=== PATIENT | female | born 1975 | race Caucasian/White ===

== ENCOUNTER → 2017-01-06 | Outpatient (CLI) | payer MEDICARE, MEDICAID | LOC: RAD 08:44 | PROVIDERS: ATTEND Nurse Practitioner Family | DX: M54.16 Radiculopathy, lumbar region (principal) | CPT/HCPCS: 72148 ==

== ENCOUNTER → 2017-07-08 | Outpatient (CLI) | payer MEDICARE, MEDICAID ==
--- NOTE | 2017-07-08 14:48 | WOMENS IMAGING REPORT ---
EXAM DESCRIPTION: BILAT SCREENING MAMMO W/CAD COMPLETED DATE/TIME: 07/08/2017 9:58 am REASON FOR STUDY: ROUTINE SCREENING; Z12.31 Z12.31 ENCNTR SCREEN MAMMOGRAM FOR MALIGNANT NEOPLASM O F ANTHONY COMPARISON: July 2014 TECHNIQUE: Standard craniocaudal and mediolateral oblique views of each breast recorded using digita l acquisition. LIMITATIONS: None. FINDINGS: No masses, calcifications or architectural distortion. No areas of suspicion. Read with the assistance of CAD. .[facility] - R2 Cenova Version 1.3 .[facility] - R2 Cenova Version 1.3 .[facility] - R2 Cenova Version 2.4 .[facility] - R2 Cenova Version 2.4 .[facility] - R2 Clock Repairer Version 9.2 IMPRESSION: NORMAL MAMMOGRAM. BIRADS 1. BREAST DENSITY: c. The breasts are heterogeneously dense, which may obscure small masses. BIRAD: 1 NEGATIVE RECOMMENDATION: ROUTINE SCREENING COMMENT: The patient has been notified of the results by letter per SA requirements. Additional no tification policies are in place for contacting patient with suspicious or incomplete findings. Quality ID #225: The [employer] recommends an annual screening mammogram for women aged 40 years or over. This facility utilizes a reminder system to ensure that all patients receive reminder letters, and/or direct phone calls for appointments. This includes reminders for routine scr eening mammograms, diagnostic mammograms, or other Breast Imaging Interventions when appropriate. Th is patient will be placed in the appropriate reminder system. The [place] [employer] (ACR) has developed recommendations for screening MRI of the breast s in certain patient populations, to be used in conjunction with mammography. Breast MRI surveillanc e may be appropriate for women with more than 20% lifetime risk of developing breast cancer as deter mined by genetic testing, significant family history of the disease, or history of mantle radiation f or Hodgkins Disease. ACR Practice Guidelines 2008. TECHNICAL DOCUMENTATION: FINDING NUMBER: (1) ASSESSMENT: (1) JOB ID: [id number] [employer]- All Rights Reserved
== END ==
LOC: WI 10:06
PROVIDERS: ATTEND Family Medicine
DX: Z12.31 Encounter for screening mammogram for malignant neoplasm of breast (principal)
CPT/HCPCS: 77067; G0202

== ENCOUNTER → 2018-01-14 | Outpatient (CLI) | payer MEDICARE, MEDICAID ==
--- NOTE | 2018-01-14 12:52 | WOMENS IMAGING REPORT ---
EXAM DESCRIPTION: BONE DENSITY HIP/SPINE COMPLETED DATE/TIME: 01/14/2018 12:38 pm REASON FOR STUDY: DISORDER OF BONE; M89.9 M89.9 DISORDER OF BONE, UNSPECIFIED COMPARISON: None. TECHNIQUE: Dual-Energy X-ray Absorptiometry (DEXA) of the AP Spine and Hip. LIMITATIONS: None. FINDINGS: LUMBAR SPINE: The bone mineral density (BMD) measured from L1-L4 in the AP projection correlates with a T-score of -0.1, which is normal as defined by the World Health Organization. HIP: The bone mineral density (BMD) measured in the left femoral neck at the hip correlates with a T-score of -1.2, which is osteopenic as defined by the World Health Organization. IMPRESSION: 1. LUMBAR SPINE: Normal 2. HIP: Osteopenic COMMENT: The World Health Organization defines low BMD as follows: T-score: Normal: Greater than -1.0 Osteopenia: Between -1.0 and -2.5 Osteoporosis: Less than -2.5 without fractures Established osteoporosis: Less than -2.5 with fractures In general, you may wish to consider: Diagnosis Treatment Follow-up DEXA Normal BMD Prevention 2-3 years Osteopenia Prevention/Therapy 1-2 years Osteoporosis Therapy Yearly TECHNICAL DOCUMENTATION: JOB ID: [id number] [employer]- All Rights Reserved Reading location - IP/workstation name: [facility]-[email or web address]
== END ==
LOC: WI 12:30
PROVIDERS: ATTEND Family Medicine
DX: M89.9 Disorder of bone, unspecified (principal)
CPT/HCPCS: 77080

== ENCOUNTER → 2018-05-27 | Outpatient (CLI) | payer MEDICARE, MEDICAID ==
[2018-05-27 15:58] LABS: ABSOLUTE EOSINOPHILS # (AUTO) 0.7 10^3/uL (0.0-0.6); ABSOLUTE LYMPHOCYTES (AUTO) 1.9 10^3/uL (0.5-4.7); ABSOLUTE MONOCYTES (AUTO) 0.6 10^3/uL (0.1-1.4); ABSOLUTE NEUT (AUTO) 4.5 10^3/uL (1.7-8.2); BASOPHILS % (AUTO) 0.5 % (0-2); EOSINOPHILS % (AUTO) 8.6 % (0-6); HEMATOCRIT 35.8 % (36.0-47.0); HEMOGLOBIN 12.1 g/dL (12.0-15.5); LYMPHOCYTES % (AUTO) 24.5 % (13-45); MEAN CORPUSCULAR HEMOGLOBIN 29.9 pg (27.0-33.4); MEAN CORPUSCULAR HGB CONC 33.7 g/dL (32.0-36.0); MEAN CORPUSCULAR VOLUME 89 fl (80-97); MONOCYTES % (AUTO) 7.8 % (3-13); PLATELET COUNT 258 10^3/uL (150-450); RED BLOOD COUNT 4.03 10^6/uL (3.72-5.28); RED CELL DISTRIBUTION WIDTH 13.2 % (11.5-14.0); SEGMENTED NEUTROPHILS % (AUTO) 58.6 % (42-78); TOTAL CELLS COUNTED % (AUTO) 100 %; WHITE BLOOD COUNT 7.6 10^3/uL (4.0-10.5)
== END ==
LOC: OD 14:34
PROVIDERS: ATTEND Psychiatry & Neurology Psychiatry
DX: F31.32 Bipolar disorder, current episode depressed, moderate (principal); Z79.899 Other long term (current) drug therapy
CPT/HCPCS: 36415; 85025

== ENCOUNTER → 2018-06-15 | Outpatient (CLI) | payer MEDICARE, MEDICAID ==
[2018-06-15 12:04] LABS: ABSOLUTE EOSINOPHILS # (AUTO) 0.4 10^3/uL (0.0-0.6); ABSOLUTE LYMPHOCYTES (AUTO) 1.5 10^3/uL (0.5-4.7); ABSOLUTE MONOCYTES (AUTO) 0.4 10^3/uL (0.1-1.4); ABSOLUTE NEUT (AUTO) 2.9 10^3/uL (1.7-8.2); BASOPHILS % (AUTO) 0.4 % (0-2); HEMATOCRIT 35.8 % (36.0-47.0); LYMPHOCYTES % (AUTO) 28.9 % (13-45); MEAN CORPUSCULAR HEMOGLOBIN 29.7 pg (27.0-33.4); MEAN CORPUSCULAR HGB CONC 33.6 g/dL (32.0-36.0); MEAN CORPUSCULAR VOLUME 88 fl (80-97); MONOCYTES % (AUTO) 8.4 % (3-13); PLATELET COUNT 274 10^3/uL (150-450); RED BLOOD COUNT 4.05 10^6/uL (3.72-5.28); RED CELL DISTRIBUTION WIDTH 13.7 % (11.5-14.0); SEGMENTED NEUTROPHILS % (AUTO) 55.3 % (42-78); TOTAL CELLS COUNTED % (AUTO) 100 %; WHITE BLOOD COUNT 5.3 10^3/uL (4.0-10.5)
== END ==
LOC: OD 11:18
PROVIDERS: ATTEND Psychiatry & Neurology Psychiatry
DX: F31.32 Bipolar disorder, current episode depressed, moderate (principal); Z79.899 Other long term (current) drug therapy
CPT/HCPCS: 36415; 85025

== ENCOUNTER → 2018-07-21 | Outpatient (CLI) | payer MEDICARE, MEDICAID ==
[2018-07-21 10:16] LABS: ABSOLUTE EOSINOPHILS # (AUTO) 0.4 10^3/uL (0.0-0.6); ABSOLUTE LYMPHOCYTES (AUTO) 1.5 10^3/uL (0.5-4.7); ABSOLUTE MONOCYTES (AUTO) 0.5 10^3/uL (0.1-1.4); ABSOLUTE NEUT (AUTO) 4.1 10^3/uL (1.7-8.2); BASOPHILS % (AUTO) 0.4 % (0-2); EOSINOPHILS % (AUTO) 6.7 % (0-6); HEMATOCRIT 36.6 % (36.0-47.0); HEMOGLOBIN 12.7 g/dL (12.0-15.5); LYMPHOCYTES % (AUTO) 22.7 % (13-45); MEAN CORPUSCULAR HEMOGLOBIN 30.4 pg (27.0-33.4); MEAN CORPUSCULAR HGB CONC 34.6 g/dL (32.0-36.0); MEAN CORPUSCULAR VOLUME 88 fl (80-97); MONOCYTES % (AUTO) 7.6 % (3-13); PLATELET COUNT 279 10^3/uL (150-450); RED BLOOD COUNT 4.16 10^6/uL (3.72-5.28); RED CELL DISTRIBUTION WIDTH 13.3 % (11.5-14.0); SEGMENTED NEUTROPHILS % (AUTO) 62.6 % (42-78); TOTAL CELLS COUNTED % (AUTO) 100 %; WHITE BLOOD COUNT 6.6 10^3/uL (4.0-10.5)
== END ==
LOC: OD 09:46
PROVIDERS: ATTEND Psychiatry & Neurology Psychiatry
DX: F31.32 Bipolar disorder, current episode depressed, moderate (principal); Z79.899 Other long term (current) drug therapy
CPT/HCPCS: 36415; 85025

== ENCOUNTER → 2018-08-12 | Outpatient (CLI) | payer MEDICARE, MEDICAID ==
[2018-08-12 14:46] LABS: ABSOLUTE EOSINOPHILS # (AUTO) 0.6 10^3/uL (0.0-0.6); ABSOLUTE LYMPHOCYTES (AUTO) 1.6 10^3/uL (0.5-4.7); ABSOLUTE MONOCYTES (AUTO) 0.4 10^3/uL (0.1-1.4); ABSOLUTE NEUT (AUTO) 2.9 10^3/uL (1.7-8.2); BASOPHILS % (AUTO) 0.8 % (0-2); EOSINOPHILS % (AUTO) 11.2 % (0-6); HEMATOCRIT 35.7 % (36.0-47.0); HEMOGLOBIN 12.2 g/dL (12.0-15.5); MEAN CORPUSCULAR HEMOGLOBIN 30.3 pg (27.0-33.4); MEAN CORPUSCULAR HGB CONC 34.2 g/dL (32.0-36.0); MEAN CORPUSCULAR VOLUME 89 fl (80-97); MONOCYTES % (AUTO) 7.8 % (3-13); PLATELET COUNT 275 10^3/uL (150-450); RED BLOOD COUNT 4.03 10^6/uL (3.72-5.28); RED CELL DISTRIBUTION WIDTH 13.4 % (11.5-14.0); SEGMENTED NEUTROPHILS % (AUTO) 52.2 % (42-78); TOTAL CELLS COUNTED % (AUTO) 100 %; WHITE BLOOD COUNT 5.6 10^3/uL (4.0-10.5)
== END ==
LOC: OD 14:08
PROVIDERS: ATTEND Psychiatry & Neurology Psychiatry
DX: F31.32 Bipolar disorder, current episode depressed, moderate (principal)
CPT/HCPCS: 36415; 85025

== ENCOUNTER → 2018-09-18 | Outpatient (CLI) | payer MEDICARE, MEDICAID ==
[2018-09-18 12:11] LABS: ABSOLUTE EOSINOPHILS # (AUTO) 0.4 10^3/uL (0.0-0.6); ABSOLUTE LYMPHOCYTES (AUTO) 1.9 10^3/uL (0.5-4.7); ABSOLUTE MONOCYTES (AUTO) 0.6 10^3/uL (0.1-1.4); ABSOLUTE NEUT (AUTO) 4.3 10^3/uL (1.7-8.2); BASOPHILS % (AUTO) 0.5 % (0-2); EOSINOPHILS % (AUTO) 5.8 % (0-6); HEMATOCRIT 36.1 % (36.0-47.0); HEMOGLOBIN 12.5 g/dL (12.0-15.5); LYMPHOCYTES % (AUTO) 26.6 % (13-45); MEAN CORPUSCULAR HEMOGLOBIN 30.1 pg (27.0-33.4); MEAN CORPUSCULAR HGB CONC 34.6 g/dL (32.0-36.0); MEAN CORPUSCULAR VOLUME 87 fl (80-97); MONOCYTES % (AUTO) 7.9 % (3-13); PLATELET COUNT 297 10^3/uL (150-450); RED BLOOD COUNT 4.15 10^6/uL (3.72-5.28); RED CELL DISTRIBUTION WIDTH 12.8 % (11.5-14.0); SEGMENTED NEUTROPHILS % (AUTO) 59.2 % (42-78); TOTAL CELLS COUNTED % (AUTO) 100 %; WHITE BLOOD COUNT 7.2 10^3/uL (4.0-10.5)
== END ==
LOC: OD 10:40
PROVIDERS: ATTEND Psychiatry & Neurology Psychiatry
DX: F31.32 Bipolar disorder, current episode depressed, moderate (principal); Z79.899 Other long term (current) drug therapy
CPT/HCPCS: 36415; 85025

== ENCOUNTER → 2018-10-12 | Outpatient (CLI) | payer MEDICARE, MEDICAID ==
[2018-10-12 17:37] LABS: ABSOLUTE EOSINOPHILS # (AUTO) 0.5 10^3/uL (0.0-0.6); ABSOLUTE LYMPHOCYTES (AUTO) 1.9 10^3/uL (0.5-4.7); ABSOLUTE MONOCYTES (AUTO) 0.7 10^3/uL (0.1-1.4); ABSOLUTE NEUT (AUTO) 6.1 10^3/uL (1.7-8.2); BASOPHILS % (AUTO) 0.5 % (0-2); EOSINOPHILS % (AUTO) 5.2 % (0-6); HEMATOCRIT 36.1 % (36.0-47.0); HEMOGLOBIN 12.5 g/dL (12.0-15.5); LYMPHOCYTES % (AUTO) 20.6 % (13-45); MEAN CORPUSCULAR HEMOGLOBIN 30.2 pg (27.0-33.4); MEAN CORPUSCULAR HGB CONC 34.6 g/dL (32.0-36.0); MEAN CORPUSCULAR VOLUME 87 fl (80-97); MONOCYTES % (AUTO) 7.8 % (3-13); PLATELET COUNT 282 10^3/uL (150-450); RED BLOOD COUNT 4.14 10^6/uL (3.72-5.28); RED CELL DISTRIBUTION WIDTH 13.6 % (11.5-14.0); SEGMENTED NEUTROPHILS % (AUTO) 65.9 % (42-78); TOTAL CELLS COUNTED % (AUTO) 100 %; WHITE BLOOD COUNT 9.2 10^3/uL (4.0-10.5)
== END ==
LOC: OD 16:10
PROVIDERS: ATTEND Psychiatry & Neurology Psychiatry
DX: F31.32 Bipolar disorder, current episode depressed, moderate (principal); Z79.899 Other long term (current) drug therapy
CPT/HCPCS: 36415; 85025

== ENCOUNTER → 2018-11-03 | Outpatient (CLI) | payer MEDICARE, MEDICAID ==
--- NOTE | 2018-11-03 13:47 | RADIOLOGY REPORT (SQ) ---
EXAM DESCRIPTION: KNEE BILATERAL 1-2 VIEWS COMPLETED DATE/TIME: 11/03/2018 1:35 pm REASON FOR STUDY: ACUTE PAIN OF BOTH KNEES F31.32 BIPOLAR DISORDER, CURRENT EPISODE DEPRESSED, MODE RATE M25.561 PAIN IN RIGHT KNEE COMPARISON: None. NUMBER OF VIEWS: Two views. TECHNIQUE: AP and lateral standing bilateral knees. LIMITATIONS: None. FINDINGS: MINERALIZATION: Normal. RIGHT KNEE BONES: No acute fracture. No worrisome bone lesions. MEDIAL COMPARTMENT: No significant osteophytes. No joint space narrowing. No chondrocalcinosis. LATERAL COMPARTMENT: No significant osteophytes. No joint space narrowing. No chondrocalcinosis. LEFT KNEE BONES: No acute fracture. No worrisome bone lesions. MEDIAL COMPARTMENT: No significant osteophytes. No joint space narrowing. No chondrocalcinosis. LATERAL COMPARTMENT: No significant osteophytes. No joint space narrowing. No chondrocalcinosis. IMPRESSION: NEGATIVE STUDY OF THE STANDING LEFT AND RIGHT KNEES. NO SIGNIFICANT JOINT SPACE NARROWIN G OR OTHER SIGNS OF ARTHRITIS. TECHNICAL DOCUMENTATION: JOB ID: [id number] [employer]- All Rights Reserved Reading location - IP/workstation name: [email or web address]
[2018-11-03 14:35] LABS: ABSOLUTE EOSINOPHILS # (AUTO) 0.5 10^3/uL (0.0-0.6); ABSOLUTE LYMPHOCYTES (AUTO) 1.5 10^3/uL (0.5-4.7); ABSOLUTE MONOCYTES (AUTO) 0.6 10^3/uL (0.1-1.4); ABSOLUTE NEUT (AUTO) 4.4 10^3/uL (1.7-8.2); BASOPHILS % (AUTO) 0.4 % (0-2); EOSINOPHILS % (AUTO) 6.9 % (0-6); HEMATOCRIT 35.4 % (36.0-47.0); HEMOGLOBIN 12.5 g/dL (12.0-15.5); LYMPHOCYTES % (AUTO) 21.6 % (13-45); MEAN CORPUSCULAR HEMOGLOBIN 30.9 pg (27.0-33.4); MEAN CORPUSCULAR HGB CONC 35.3 g/dL (32.0-36.0); MEAN CORPUSCULAR VOLUME 88 fl (80-97); MONOCYTES % (AUTO) 8.6 % (3-13); PLATELET COUNT 280 10^3/uL (150-450); RED BLOOD COUNT 4.04 10^6/uL (3.72-5.28); RED CELL DISTRIBUTION WIDTH 13.3 % (11.5-14.0); SEGMENTED NEUTROPHILS % (AUTO) 62.5 % (42-78); TOTAL CELLS COUNTED % (AUTO) 100 %
== END ==
LOC: OD 13:05
PROVIDERS: ATTEND Family Medicine
DX: M25.561 Pain in right knee (principal); M25.562 Pain in left knee; F31.32 Bipolar disorder, current episode depressed, moderate; Z79.899 Other long term (current) drug therapy
CPT/HCPCS: 36415; 85025

== ENCOUNTER → 2018-11-03 | Outpatient (CLI) | payer MEDICARE, MEDICAID ==
--- NOTE | 2018-11-03 17:05 | WOMENS IMAGING REPORT ---
EXAM DESCRIPTION: BILAT SCREENING MAMMO W/CAD COMPLETED DATE/TIME: 11/03/2018 2:02 pm REASON FOR STUDY: Z12.31 ENCOUNTER FOR SCREENING MAMMOGRAM FOR MALIGNANT NEOPLASM OF BREAST Z12.31 ENCNTR SCREEN MAMMOGRAM FOR MALIGNANT NEOPLASM OF ANTHONY COMPARISON: 2013 TECHNIQUE: Standard craniocaudal and mediolateral oblique views of each breast recorded using digita l acquisition. LIMITATIONS: None. FINDINGS: No masses, calcifications or architectural distortion. No areas of suspicion. Read with the assistance of CAD. .[facility] - R2 Cenova Version 1.3 .[facility] - R2 Cenova Version 2.1 .[facility] - R2 Cenova Version 2.4 .[facility] - R2 Cenova Version 2.4 .[facility] - R2 [employer] Version 9.2 IMPRESSION: NORMAL MAMMOGRAM. BIRADS 1. BREAST DENSITY: c. The breasts are heterogeneously dense, which may obscure small masses. BIRAD: 1 NEGATIVE RECOMMENDATION: ROUTINE SCREENING COMMENT: The patient has been notified of the results by letter per SA requirements. Additional no tification policies are in place for contacting patient with suspicious or incomplete findings. Quality ID #225: The [employer] recommends an annual screening mammogram for women aged 40 years or over. This facility utilizes a reminder system to ensure that all patients receive reminder letters, and/or direct phone calls for appointments. This includes reminders for routine scr eening mammograms, diagnostic mammograms, or other Breast Imaging Interventions when appropriate. Th is patient will be placed in the appropriate reminder system. The [place] [employer] (ACR) has developed recommendations for screening MRI of the breast s in certain patient populations, to be used in conjunction with mammography. Breast MRI surveillanc e may be appropriate for women with more than 20% lifetime risk of developing breast cancer as deter mined by genetic testing, significant family history of the disease, or history of mantle radiation f or Hodgkins Disease. ACR Practice Guidelines 2008. TECHNICAL DOCUMENTATION: FINDING NUMBER: (1) ASSESSMENT: (1) JOB ID: [id number] [employer]- All Rights Reserved Reading location - IP/workstation name: [email or web address]
== END ==
LOC: WI 13:39
PROVIDERS: ATTEND Family Medicine
DX: Z12.31 Encounter for screening mammogram for malignant neoplasm of breast (principal)
CPT/HCPCS: 77067

== ENCOUNTER → 2018-12-08 | Outpatient (CLI) | payer MEDICARE, MEDICAID ==
[2018-12-08 11:36] LABS: ABSOLUTE EOSINOPHILS # (AUTO) 0.9 10^3/uL (0.0-0.6); ABSOLUTE LYMPHOCYTES (AUTO) 1.6 10^3/uL (0.5-4.7); ABSOLUTE MONOCYTES (AUTO) 0.7 10^3/uL (0.1-1.4); BASOPHILS % (AUTO) 0.5 % (0-2); EOSINOPHILS % (AUTO) 10.5 % (0-6); HEMOGLOBIN 12.5 g/dL (12.0-15.5); LYMPHOCYTES % (AUTO) 19.2 % (13-45); MEAN CORPUSCULAR HEMOGLOBIN 30.3 pg (27.0-33.4); MEAN CORPUSCULAR HGB CONC 34.6 g/dL (32.0-36.0); MEAN CORPUSCULAR VOLUME 88 fl (80-97); MONOCYTES % (AUTO) 8.3 % (3-13); PLATELET COUNT 278 10^3/uL (150-450); RED BLOOD COUNT 4.11 10^6/uL (3.72-5.28); RED CELL DISTRIBUTION WIDTH 13.4 % (11.5-14.0); SEGMENTED NEUTROPHILS % (AUTO) 61.5 % (42-78); TOTAL CELLS COUNTED % (AUTO) 100 %; WHITE BLOOD COUNT 8.2 10^3/uL (4.0-10.5)
== END ==
LOC: OD 11:06
PROVIDERS: ATTEND Psychiatry & Neurology Psychiatry
DX: F31.32 Bipolar disorder, current episode depressed, moderate (principal); Z79.899 Other long term (current) drug therapy
CPT/HCPCS: 36415; 85025

== ENCOUNTER → 2019-01-07 | Outpatient (CLI) | payer MEDICARE, MEDICAID ==
[2019-01-07 11:28] LABS: ABSOLUTE EOSINOPHILS # (AUTO) 0.4 10^3/uL (0.0-0.6); ABSOLUTE LYMPHOCYTES (AUTO) 1.4 10^3/uL (0.5-4.7); ABSOLUTE MONOCYTES (AUTO) 0.6 10^3/uL (0.1-1.4); BASOPHILS % (AUTO) 0.5 % (0-2); EOSINOPHILS % (AUTO) 8.1 % (0-6); HEMATOCRIT 37.1 % (36.0-47.0); HEMOGLOBIN 12.6 g/dL (12.0-15.5); LYMPHOCYTES % (AUTO) 25.8 % (13-45); MEAN CORPUSCULAR HEMOGLOBIN 29.6 pg (27.0-33.4); MEAN CORPUSCULAR HGB CONC 33.9 g/dL (32.0-36.0); MEAN CORPUSCULAR VOLUME 87 fl (80-97); MONOCYTES % (AUTO) 10.2 % (3-13); PLATELET COUNT 257 10^3/uL (150-450); RED BLOOD COUNT 4.25 10^6/uL (3.72-5.28); RED CELL DISTRIBUTION WIDTH 13.2 % (11.5-14.0); SEGMENTED NEUTROPHILS % (AUTO) 55.4 % (42-78); TOTAL CELLS COUNTED % (AUTO) 100 %; WHITE BLOOD COUNT 5.5 10^3/uL (4.0-10.5)
== END ==
LOC: OD 10:43
PROVIDERS: ATTEND Psychiatry & Neurology Psychiatry
DX: F31.32 Bipolar disorder, current episode depressed, moderate (principal); Z79.899 Other long term (current) drug therapy
CPT/HCPCS: 36415; 85025

== ENCOUNTER → 2019-02-11 | Outpatient (CLI) | payer MEDICARE, MEDICAID ==
[2019-02-11 12:34] LABS: ABSOLUTE EOSINOPHILS # (AUTO) 0.4 10^3/uL (0.0-0.6); ABSOLUTE LYMPHOCYTES (AUTO) 1.7 10^3/uL (0.5-4.7); ABSOLUTE MONOCYTES (AUTO) 0.7 10^3/uL (0.1-1.4); ABSOLUTE NEUT (AUTO) 3.8 10^3/uL (1.7-8.2); BASOPHILS % (AUTO) 0.4 % (0-2); EOSINOPHILS % (AUTO) 6.2 % (0-6); HEMATOCRIT 36.6 % (36.0-47.0); HEMOGLOBIN 12.4 g/dL (12.0-15.5); LYMPHOCYTES % (AUTO) 26.2 % (13-45); MEAN CORPUSCULAR HEMOGLOBIN 29.3 pg (27.0-33.4); MEAN CORPUSCULAR HGB CONC 33.7 g/dL (32.0-36.0); MEAN CORPUSCULAR VOLUME 87 fl (80-97); MONOCYTES % (AUTO) 10.7 % (3-13); PLATELET COUNT 308 10^3/uL (150-450); RED BLOOD COUNT 4.22 10^6/uL (3.72-5.28); RED CELL DISTRIBUTION WIDTH 13.6 % (11.5-14.0); SEGMENTED NEUTROPHILS % (AUTO) 56.5 % (42-78); TOTAL CELLS COUNTED % (AUTO) 100 %; WHITE BLOOD COUNT 6.6 10^3/uL (4.0-10.5)
== END ==
LOC: OD 11:58
PROVIDERS: ATTEND Psychiatry & Neurology Psychiatry
DX: F31.32 Bipolar disorder, current episode depressed, moderate (principal); Z79.899 Other long term (current) drug therapy
CPT/HCPCS: 36415; 85025

== ENCOUNTER → 2019-03-11 | Outpatient (CLI) | payer MEDICARE, MEDICAID ==
[2019-03-11 10:55] LABS: ABSOLUTE EOSINOPHILS # (AUTO) 0.5 10^3/uL (0.0-0.6); ABSOLUTE LYMPHOCYTES (AUTO) 1.6 10^3/uL (0.5-4.7); ABSOLUTE MONOCYTES (AUTO) 0.6 10^3/uL (0.1-1.4); ABSOLUTE NEUT (AUTO) 3.4 10^3/uL (1.7-8.2); BASOPHILS % (AUTO) 0.5 % (0-2); EOSINOPHILS % (AUTO) 8.2 % (0-6); HEMATOCRIT 36.5 % (36.0-47.0); HEMOGLOBIN 12.4 g/dL (12.0-15.5); LYMPHOCYTES % (AUTO) 25.6 % (13-45); MEAN CORPUSCULAR HEMOGLOBIN 29.5 pg (27.0-33.4); MEAN CORPUSCULAR HGB CONC 34.1 g/dL (32.0-36.0); MEAN CORPUSCULAR VOLUME 87 fl (80-97); MONOCYTES % (AUTO) 9.7 % (3-13); PLATELET COUNT 275 10^3/uL (150-450); RED BLOOD COUNT 4.21 10^6/uL (3.72-5.28); RED CELL DISTRIBUTION WIDTH 13.3 % (11.5-14.0); TOTAL CELLS COUNTED % (AUTO) 100 %; WHITE BLOOD COUNT 6.1 10^3/uL (4.0-10.5)
== END ==
LOC: OD 09:54
PROVIDERS: ATTEND Psychiatry & Neurology Psychiatry
DX: F31.32 Bipolar disorder, current episode depressed, moderate (principal); Z79.899 Other long term (current) drug therapy
CPT/HCPCS: 36415; 85025

== ENCOUNTER → 2019-04-06 | Outpatient (CLI) | payer MEDICARE, MEDICAID ==
[2019-04-06 16:01] LABS: ABSOLUTE EOSINOPHILS # (AUTO) 0.4 10^3/uL (0.0-0.6); ABSOLUTE MONOCYTES (AUTO) 0.5 10^3/uL (0.1-1.4); ABSOLUTE NEUT (AUTO) 5.3 10^3/uL (1.7-8.2); BASOPHILS % (AUTO) 0.3 % (0-2); EOSINOPHILS % (AUTO) 4.7 % (0-6); HEMATOCRIT 36.7 % (36.0-47.0); HEMOGLOBIN 12.6 g/dL (12.0-15.5); LYMPHOCYTES % (AUTO) 24.3 % (13-45); MEAN CORPUSCULAR HEMOGLOBIN 29.5 pg (27.0-33.4); MEAN CORPUSCULAR HGB CONC 34.4 g/dL (32.0-36.0); MEAN CORPUSCULAR VOLUME 86 fl (80-97); MONOCYTES % (AUTO) 6.5 % (3-13); PLATELET COUNT 313 10^3/uL (150-450); RED BLOOD COUNT 4.28 10^6/uL (3.72-5.28); RED CELL DISTRIBUTION WIDTH 13.2 % (11.5-14.0); SEGMENTED NEUTROPHILS % (AUTO) 64.2 % (42-78); TOTAL CELLS COUNTED % (AUTO) 100 %; WHITE BLOOD COUNT 8.2 10^3/uL (4.0-10.5)
== END ==
LOC: OD 15:08
PROVIDERS: ATTEND Psychiatry & Neurology Psychiatry
DX: F41.0 Panic disorder [episodic paroxysmal anxiety] (principal); F31.32 Bipolar disorder, current episode depressed, moderate; Z79.899 Other long term (current) drug therapy
CPT/HCPCS: 36415; 85025

== ENCOUNTER → 2019-05-11 | Outpatient (CLI) | payer MEDICARE, MEDICAID ==
[2019-05-11 12:34] LABS: ABSOLUTE EOSINOPHILS # (AUTO) 0.5 10^3/uL (0.0-0.6); ABSOLUTE LYMPHOCYTES (AUTO) 1.6 10^3/uL (0.5-4.7); ABSOLUTE MONOCYTES (AUTO) 0.6 10^3/uL (0.1-1.4); ABSOLUTE NEUT (AUTO) 3.6 10^3/uL (1.7-8.2); BASOPHILS % (AUTO) 0.3 % (0-2); EOSINOPHILS % (AUTO) 7.2 % (0-6); HEMATOCRIT 35.1 % (36.0-47.0); LYMPHOCYTES % (AUTO) 25.9 % (13-45); MEAN CORPUSCULAR HEMOGLOBIN 29.9 pg (27.0-33.4); MEAN CORPUSCULAR HGB CONC 34.2 g/dL (32.0-36.0); MEAN CORPUSCULAR VOLUME 87 fl (80-97); MONOCYTES % (AUTO) 9.6 % (3-13); PLATELET COUNT 284 10^3/uL (150-450); RED BLOOD COUNT 4.02 10^6/uL (3.72-5.28); RED CELL DISTRIBUTION WIDTH 13.8 % (11.5-14.0); TOTAL CELLS COUNTED % (AUTO) 100 %; WHITE BLOOD COUNT 6.3 10^3/uL (4.0-10.5)
== END ==
LOC: OD 11:07
PROVIDERS: ATTEND Physician Assistant
DX: F41.0 Panic disorder [episodic paroxysmal anxiety] (principal); Z79.899 Other long term (current) drug therapy
CPT/HCPCS: 36415; 85025

== ENCOUNTER → 2019-06-15 | Outpatient (CLI) | payer MEDICARE, MEDICAID ==
[2019-06-15 15:56] LABS: ABSOLUTE EOSINOPHILS # (AUTO) 0.5 10^3/uL (0.0-0.6); ABSOLUTE LYMPHOCYTES (AUTO) 1.9 10^3/uL (0.5-4.7); ABSOLUTE MONOCYTES (AUTO) 0.5 10^3/uL (0.1-1.4); ABSOLUTE NEUT (AUTO) 4.3 10^3/uL (1.7-8.2); BASOPHILS % (AUTO) 0.5 % (0-2); EOSINOPHILS % (AUTO) 6.4 % (0-6); HEMATOCRIT 34.9 % (36.0-47.0); MEAN CORPUSCULAR HEMOGLOBIN 29.7 pg (27.0-33.4); MEAN CORPUSCULAR HGB CONC 34.3 g/dL (32.0-36.0); MEAN CORPUSCULAR VOLUME 87 fl (80-97); MONOCYTES % (AUTO) 6.8 % (3-13); PLATELET COUNT 307 10^3/uL (150-450); RED BLOOD COUNT 4.03 10^6/uL (3.72-5.28); SEGMENTED NEUTROPHILS % (AUTO) 59.3 % (42-78); TOTAL CELLS COUNTED % (AUTO) 100 %; WHITE BLOOD COUNT 7.2 10^3/uL (4.0-10.5)
== END ==
LOC: OD 15:17
PROVIDERS: ATTEND Physician Assistant
DX: F41.0 Panic disorder [episodic paroxysmal anxiety] (principal); Z79.899 Other long term (current) drug therapy
CPT/HCPCS: 36415; 85025

== ENCOUNTER → 2019-07-26 | Outpatient (CLI) | payer MEDICARE, MEDICAID ==
[2019-07-26 15:44] LABS: ABSOLUTE EOSINOPHILS # (AUTO) 0.3 10^3/uL (0.0-0.6); ABSOLUTE LYMPHOCYTES (AUTO) 1.9 10^3/uL (0.5-4.7); ABSOLUTE MONOCYTES (AUTO) 0.4 10^3/uL (0.1-1.4); ABSOLUTE NEUT (AUTO) 4.2 10^3/uL (1.7-8.2); BASOPHILS % (AUTO) 0.4 % (0-2); HEMATOCRIT 36.5 % (36.0-47.0); HEMOGLOBIN 12.6 g/dL (12.0-15.5); MEAN CORPUSCULAR HEMOGLOBIN 29.9 pg (27.0-33.4); MEAN CORPUSCULAR HGB CONC 34.5 g/dL (32.0-36.0); MEAN CORPUSCULAR VOLUME 87 fl (80-97); MONOCYTES % (AUTO) 6.3 % (3-13); PLATELET COUNT 326 10^3/uL (150-450); RED BLOOD COUNT 4.21 10^6/uL (3.72-5.28); RED CELL DISTRIBUTION WIDTH 12.9 % (11.5-14.0); SEGMENTED NEUTROPHILS % (AUTO) 61.3 % (42-78); TOTAL CELLS COUNTED % (AUTO) 100 %; WHITE BLOOD COUNT 6.8 10^3/uL (4.0-10.5)
== END ==
LOC: OD 14:11
PROVIDERS: ATTEND Physician Assistant
DX: F41.0 Panic disorder [episodic paroxysmal anxiety] (principal); Z79.899 Other long term (current) drug therapy
CPT/HCPCS: 36415; 85025

== ENCOUNTER → 2019-08-31 | Outpatient (CLI) | payer MEDICARE, MEDICAID ==
[2019-08-31 13:13] LABS: ABSOLUTE MONOCYTES (AUTO) 0.6 10^3/uL (0.1-1.4); ABSOLUTE NEUT (AUTO) 8.6 10^3/uL (1.7-8.2); BASOPHILS % (AUTO) 0.3 % (0-2); HEMATOCRIT 35.3 % (36.0-47.0); HEMOGLOBIN 12.3 g/dL (12.0-15.5); LYMPHOCYTES % (AUTO) 9.8 % (13-45); MEAN CORPUSCULAR HEMOGLOBIN 30.3 pg (27.0-33.4); MEAN CORPUSCULAR HGB CONC 34.8 g/dL (32.0-36.0); MEAN CORPUSCULAR VOLUME 87 fl (80-97); MONOCYTES % (AUTO) 5.5 % (3-13); PLATELET COUNT 356 10^3/uL (150-450); RED BLOOD COUNT 4.05 10^6/uL (3.72-5.28); RED CELL DISTRIBUTION WIDTH 13.6 % (11.5-14.0); SEGMENTED NEUTROPHILS % (AUTO) 84.4 % (42-78); TOTAL CELLS COUNTED % (AUTO) 100 %; WHITE BLOOD COUNT 10.2 10^3/uL (4.0-10.5)
== END ==
LOC: OD 12:13
PROVIDERS: ATTEND Physician Assistant
DX: F41.0 Panic disorder [episodic paroxysmal anxiety] (principal); Z79.899 Other long term (current) drug therapy
CPT/HCPCS: 36415; 85025

== ENCOUNTER → 2019-09-28 | Outpatient (CLI) | payer MEDICARE, MEDICAID ==
[2019-09-28 12:41] LABS: ABSOLUTE EOSINOPHILS # (AUTO) 0.4 10^3/uL (0.0-0.6); ABSOLUTE LYMPHOCYTES (AUTO) 1.7 10^3/uL (0.5-4.7); ABSOLUTE MONOCYTES (AUTO) 0.5 10^3/uL (0.1-1.4); ABSOLUTE NEUT (AUTO) 3.6 10^3/uL (1.7-8.2); BASOPHILS % (AUTO) 0.4 % (0-2); EOSINOPHILS % (AUTO) 6.2 % (0-6); HEMOGLOBIN 12.1 g/dL (12.0-15.5); LYMPHOCYTES % (AUTO) 27.2 % (13-45); MEAN CORPUSCULAR HEMOGLOBIN 29.9 pg (27.0-33.4); MEAN CORPUSCULAR HGB CONC 34.5 g/dL (32.0-36.0); MEAN CORPUSCULAR VOLUME 87 fl (80-97); MONOCYTES % (AUTO) 8.3 % (3-13); PLATELET COUNT 305 10^3/uL (150-450); RED BLOOD COUNT 4.04 10^6/uL (3.72-5.28); RED CELL DISTRIBUTION WIDTH 13.4 % (11.5-14.0); SEGMENTED NEUTROPHILS % (AUTO) 57.9 % (42-78); TOTAL CELLS COUNTED % (AUTO) 100 %; WHITE BLOOD COUNT 6.3 10^3/uL (4.0-10.5)
== END ==
LOC: OD 11:46
PROVIDERS: ATTEND Physician Assistant
DX: F41.0 Panic disorder [episodic paroxysmal anxiety] (principal); Z79.899 Other long term (current) drug therapy
CPT/HCPCS: 36415; 85025

== ENCOUNTER → 2019-10-26 | Outpatient (CLI) | payer MEDICARE, MEDICAID ==
[2019-10-26 12:49] LABS: ABSOLUTE BASOPHILS # (AUTO) 0.1 10^3/uL (0.0-0.2); ABSOLUTE EOSINOPHILS # (AUTO) 0.5 10^3/uL (0.0-0.6); ABSOLUTE LYMPHOCYTES (AUTO) 1.6 10^3/uL (0.5-4.7); ABSOLUTE MONOCYTES (AUTO) 0.6 10^3/uL (0.1-1.4); ABSOLUTE NEUT (AUTO) 4.1 10^3/uL (1.7-8.2); EOSINOPHILS % (AUTO) 7.2 % (0-6); HEMATOCRIT 36.8 % (36.0-47.0); HEMOGLOBIN 12.7 g/dL (12.0-15.5); LYMPHOCYTES % (AUTO) 23.7 % (13-45); MEAN CORPUSCULAR HEMOGLOBIN 29.9 pg (27.0-33.4); MEAN CORPUSCULAR HGB CONC 34.4 g/dL (32.0-36.0); MEAN CORPUSCULAR VOLUME 87 fl (80-97); MONOCYTES % (AUTO) 8.8 % (3-13); PLATELET COUNT 332 10^3/uL (150-450); RED BLOOD COUNT 4.24 10^6/uL (3.72-5.28); RED CELL DISTRIBUTION WIDTH 13.8 % (11.5-14.0); SEGMENTED NEUTROPHILS % (AUTO) 59.3 % (42-78); TOTAL CELLS COUNTED % (AUTO) 100 %; WHITE BLOOD COUNT 6.9 10^3/uL (4.0-10.5)
== END ==
LOC: OD 11:44
PROVIDERS: ATTEND Physician Assistant
DX: F41.0 Panic disorder [episodic paroxysmal anxiety] (principal); Z79.899 Other long term (current) drug therapy
CPT/HCPCS: 36415; 85025

== ENCOUNTER → 2019-11-20 | Outpatient (CLI) | payer MEDICARE, MEDICAID ==
[2019-11-20 10:38] LABS: ABSOLUTE EOSINOPHILS # (AUTO) 0.3 10^3/uL (0.0-0.6); ABSOLUTE LYMPHOCYTES (AUTO) 1.1 10^3/uL (0.5-4.7); ABSOLUTE MONOCYTES (AUTO) 0.8 10^3/uL (0.1-1.4); ABSOLUTE NEUT (AUTO) 6.6 10^3/uL (1.7-8.2); BASOPHILS % (AUTO) 0.3 % (0-2); EOSINOPHILS % (AUTO) 3.3 % (0-6); LYMPHOCYTES % (AUTO) 12.8 % (13-45); MEAN CORPUSCULAR HEMOGLOBIN 29.8 pg (27.0-33.4); MEAN CORPUSCULAR HGB CONC 34.2 g/dL (32.0-36.0); MEAN CORPUSCULAR VOLUME 87 fl (80-97); PLATELET COUNT 303 10^3/uL (150-450); RED BLOOD COUNT 4.35 10^6/uL (3.72-5.28); RED CELL DISTRIBUTION WIDTH 13.5 % (11.5-14.0); SEGMENTED NEUTROPHILS % (AUTO) 74.6 % (42-78); TOTAL CELLS COUNTED % (AUTO) 100 %; WHITE BLOOD COUNT 8.9 10^3/uL (4.0-10.5)
== END ==
LOC: OD 10:01
PROVIDERS: ATTEND Physician Assistant
DX: F41.0 Panic disorder [episodic paroxysmal anxiety] (principal); Z79.899 Other long term (current) drug therapy
CPT/HCPCS: 36415; 85025

== ENCOUNTER → 2019-12-02 | Outpatient (CLI) | payer MEDICARE, MEDICAID ==
[2019-12-02 11:13] LABS: ABSOLUTE EOSINOPHILS # (AUTO) 0.5 10^3/uL (0.0-0.6); ABSOLUTE LYMPHOCYTES (AUTO) 1.9 10^3/uL (0.5-4.7); ABSOLUTE MONOCYTES (AUTO) 0.6 10^3/uL (0.1-1.4); ABSOLUTE NEUT (AUTO) 4.9 10^3/uL (1.7-8.2); BASOPHILS % (AUTO) 0.5 % (0-2); EOSINOPHILS % (AUTO) 6.9 % (0-6); HEMATOCRIT 35.4 % (36.0-47.0); HEMOGLOBIN 12.5 g/dL (12.0-15.5); LYMPHOCYTES % (AUTO) 23.5 % (13-45); MEAN CORPUSCULAR HEMOGLOBIN 30.5 pg (27.0-33.4); MEAN CORPUSCULAR HGB CONC 35.3 g/dL (32.0-36.0); MEAN CORPUSCULAR VOLUME 87 fl (80-97); MONOCYTES % (AUTO) 7.7 % (3-13); PLATELET COUNT 373 10^3/uL (150-450); RED BLOOD COUNT 4.09 10^6/uL (3.72-5.28); RED CELL DISTRIBUTION WIDTH 13.3 % (11.5-14.0); SEGMENTED NEUTROPHILS % (AUTO) 61.4 % (42-78); TOTAL CELLS COUNTED % (AUTO) 100 %; WHITE BLOOD COUNT 7.9 10^3/uL (4.0-10.5)
== END ==
LOC: OD 10:37
PROVIDERS: ATTEND Physician Assistant
DX: F41.0 Panic disorder [episodic paroxysmal anxiety] (principal); Z79.899 Other long term (current) drug therapy
CPT/HCPCS: 36415; 85025

== ENCOUNTER → 2019-12-24 | Outpatient (CLI) | payer MEDICARE, MEDICAID ==
[2019-12-24 12:03] LABS: ABSOLUTE EOSINOPHILS # (AUTO) 0.5 10^3/uL (0.0-0.6); ABSOLUTE LYMPHOCYTES (AUTO) 1.7 10^3/uL (0.5-4.7); ABSOLUTE MONOCYTES (AUTO) 0.4 10^3/uL (0.1-1.4); ABSOLUTE NEUT (AUTO) 3.8 10^3/uL (1.7-8.2); BASOPHILS % (AUTO) 0.4 % (0-2); EOSINOPHILS % (AUTO) 7.4 % (0-6); HEMATOCRIT 36.1 % (36.0-47.0); HEMOGLOBIN 12.9 g/dL (12.0-15.5); LYMPHOCYTES % (AUTO) 27.1 % (13-45); MEAN CORPUSCULAR HEMOGLOBIN 30.8 pg (27.0-33.4); MEAN CORPUSCULAR HGB CONC 35.7 g/dL (32.0-36.0); MEAN CORPUSCULAR VOLUME 86 fl (80-97); MONOCYTES % (AUTO) 5.9 % (3-13); PLATELET COUNT 324 10^3/uL (150-450); RED BLOOD COUNT 4.18 10^6/uL (3.72-5.28); RED CELL DISTRIBUTION WIDTH 13.6 % (11.5-14.0); SEGMENTED NEUTROPHILS % (AUTO) 59.2 % (42-78); TOTAL CELLS COUNTED % (AUTO) 100 %; WHITE BLOOD COUNT 6.4 10^3/uL (4.0-10.5)
== END ==
LOC: OD 11:31
PROVIDERS: ATTEND Physician Assistant
DX: F41.0 Panic disorder [episodic paroxysmal anxiety] (principal); Z79.899 Other long term (current) drug therapy
CPT/HCPCS: 36415; 85025

== ENCOUNTER → 2020-01-20 | Outpatient (CLI) | payer MEDICARE, MEDICAID ==
[2020-01-20 11:20] LABS: ABSOLUTE EOSINOPHILS # (AUTO) 0.4 10^3/uL (0.0-0.6); ABSOLUTE LYMPHOCYTES (AUTO) 1.7 10^3/uL (0.5-4.7); ABSOLUTE MONOCYTES (AUTO) 0.5 10^3/uL (0.1-1.4); ABSOLUTE NEUT (AUTO) 3.6 10^3/uL (1.7-8.2); BASOPHILS % (AUTO) 0.5 % (0-2); EOSINOPHILS % (AUTO) 6.5 % (0-6); HEMOGLOBIN 12.2 g/dL (12.0-15.5); LYMPHOCYTES % (AUTO) 27.7 % (13-45); MEAN CORPUSCULAR HEMOGLOBIN 30.4 pg (27.0-33.4); MEAN CORPUSCULAR VOLUME 87 fl (80-97); MONOCYTES % (AUTO) 7.4 % (3-13); PLATELET COUNT 282 10^3/uL (150-450); RED BLOOD COUNT 4.03 10^6/uL (3.72-5.28); RED CELL DISTRIBUTION WIDTH 13.9 % (11.5-14.0); SEGMENTED NEUTROPHILS % (AUTO) 57.9 % (42-78); TOTAL CELLS COUNTED % (AUTO) 100 %; WHITE BLOOD COUNT 6.1 10^3/uL (4.0-10.5)
== END ==
LOC: OD 10:29
PROVIDERS: ATTEND Physician Assistant
DX: F41.0 Panic disorder [episodic paroxysmal anxiety] (principal); Z79.899 Other long term (current) drug therapy
CPT/HCPCS: 36415; 85025

== ENCOUNTER → 2020-02-18 | Outpatient (CLI) | payer MEDICARE, MEDICAID ==
[2020-02-18 14:33] LABS: ABSOLUTE EOSINOPHILS # (AUTO) 0.3 10^3/uL (0.0-0.6); ABSOLUTE LYMPHOCYTES (AUTO) 1.2 10^3/uL (0.5-4.7); ABSOLUTE MONOCYTES (AUTO) 0.4 10^3/uL (0.1-1.4); ABSOLUTE NEUT (AUTO) 3.6 10^3/uL (1.7-8.2); BASOPHILS % (AUTO) 0.5 % (0-2); EOSINOPHILS % (AUTO) 5.7 % (0-6); HEMATOCRIT 36.9 % (36.0-47.0); HEMOGLOBIN 12.7 g/dL (12.0-15.5); LYMPHOCYTES % (AUTO) 22.1 % (13-45); MEAN CORPUSCULAR HEMOGLOBIN 30.4 pg (27.0-33.4); MEAN CORPUSCULAR HGB CONC 34.3 g/dL (32.0-36.0); MEAN CORPUSCULAR VOLUME 89 fl (80-97); MONOCYTES % (AUTO) 7.7 % (3-13); PLATELET COUNT 320 10^3/uL (150-450); RED BLOOD COUNT 4.16 10^6/uL (3.72-5.28); RED CELL DISTRIBUTION WIDTH 13.7 % (11.5-14.0); TOTAL CELLS COUNTED % (AUTO) 100 %; WHITE BLOOD COUNT 5.6 10^3/uL (4.0-10.5)
== END ==
LOC: OD 10:14
PROVIDERS: ATTEND Physician Assistant
DX: F41.0 Panic disorder [episodic paroxysmal anxiety] (principal); Z79.899 Other long term (current) drug therapy
CPT/HCPCS: 36415; 85025

== ENCOUNTER → 2020-02-18 | Outpatient (CLI) | payer MEDICARE, MEDICAID ==
--- NOTE | 2020-02-18 12:13 | RADIOLOGY REPORT (SQ) ---
EXAM DESCRIPTION: KNEE LEFT 4 VIEWS IMAGES COMPLETED DATE/TIME: 02/18/2020 11:54 am REASON FOR STUDY: CHRONIC PAIN;POLYARTHRALGIA M25.50 PAIN IN UNSPECIFIED JOINT R53.83 OTHER FATIGU E R73.03 PREDIABETES COMPARISON: None. NUMBER OF VIEWS: Four views. TECHNIQUE: AP, lateral, and both oblique radiographic images acquired of the left knee. LIMITATIONS: None. FINDINGS: MINERALIZATION: Normal. BONES: No acute fracture or dislocation. No worrisome bone lesions. Small bony exostosis off the pr oximal medial tibia. Few transverse spans at the metadiaphysis, possibly growth arrest bands. JOINT: No effusion. SOFT TISSUES: No soft tissue swelling. No radio-opaque foreign body. OTHER: No other significant finding. IMPRESSION: No evidence of acute bony abnormality of the left knee. No significant degenerative change. TECHNICAL DOCUMENTATION: JOB ID: [id number] 2010 [employer]- All Rights Reserved Reading location - IP/workstation name: [email or web address]
--- NOTE | 2020-02-18 12:14 | RADIOLOGY REPORT (SQ) ---
EXAM DESCRIPTION: KNEE RIGHT 4 VIEWS IMAGES COMPLETED DATE/TIME: 02/18/2020 11:54 am REASON FOR STUDY: CHRONIC PAIN;POLYARTHRALGIA M25.50 PAIN IN UNSPECIFIED JOINT R53.83 OTHER FATIGU E R73.03 PREDIABETES COMPARISON: None. NUMBER OF VIEWS: Four views. TECHNIQUE: AP, lateral, and both oblique radiographic images acquired of the right knee. LIMITATIONS: None. FINDINGS: MINERALIZATION: Normal. BONES: No acute fracture or dislocation. No worrisome bone lesions. Few metadiaphyseal transverse l susan, possibly growth arrest bands. Tiny suprapatellar enthesophyte. JOINT: No effusion. SOFT TISSUES: No soft tissue swelling. No radio-opaque foreign body. OTHER: No other significant finding. IMPRESSION: No evidence of acute bony abnormality of the right knee. No significant degenerative change. TECHNICAL DOCUMENTATION: JOB ID: [id number] 2010 [employer]- All Rights Reserved Reading location - IP/workstation name: [email or web address]
--- NOTE | 2020-02-18 12:43 | RADIOLOGY REPORT (SQ) ---
EXAM DESCRIPTION: HAND BILATERAL 3 VIEWS IMAGES COMPLETED DATE/TIME: 02/18/2020 11:54 am REASON FOR STUDY: CHRONIC PAIN;POLYARTHRALGIA M25.50 PAIN IN UNSPECIFIED JOINT R53.83 OTHER FATIGU E R73.03 PREDIABETES COMPARISON: None. EXAM PARAMETERS: NUMBER OF VIEWS: Three views right hand. Three views left hand. TECHNIQUE: AP, lateral and oblique radiographic images acquired of bilateral hands. LIMITATIONS: None. FINDINGS: RIGHT HAND: MINERALIZATION: Normal. BONES: No acute fracture or dislocation. No worrisome bone lesions. No significant osteophytes. JOINTS: No erosions. No kitty-articular osteopenia. No chondrocalcinosis. SOFT TISSUES: No swelling. No calcifications. OTHER: No other significant finding. LEFT HAND: MINERALIZATION: Normal. BONES: No acute fracture or dislocation. No worrisome bone lesions. No significant osteophytes. Subc hondral cyst within the distal 3rd metacarpal JOINTS: No erosions. No kitty-articular osteopenia. No chondrocalcinosis. SOFT TISSUES: No swelling. No calcifications. OTHER: No other significant finding. IMPRESSION: 1. No evidence of acute bony abnormality overlie either hand. 2. No significant degenerative change or evidence of erosive or productive disease. TECHNICAL DOCUMENTATION: JOB ID: [id number] 2010 [employer]- All Rights Reserved Reading location - IP/workstation name: [email or web address]
[2020-02-18 14:42] LABS: ALBUMIN 4.3 g/dL (3.5-5.0); ALKALINE PHOSPHATASE 109 U/L (38-126); ANION GAP 8 (5-19); ASPARTATE AMINO TRANSFERASE 23 U/L (14-36); BILIRUBIN,TOTAL 0.5 mg/dL (0.2-1.3); BLOOD UREA NITROGEN 14 mg/dL (7-20); CALCIUM 9.2 mg/dL (8.4-10.2); CARBON DIOXIDE 24 mmol/L (22-30); CHLORIDE 107 mmol/L (98-107); CHOLESTEROL 292.49 mg/dL (0-200); GLUCOSE 103 mg/dL (75-110); POTASSIUM 4.1 mmol/L (3.6-5.0); TOTAL PROTEIN 7.4 g/dL (6.3-8.2); TRIGLYCERIDES 197 mg/dL (<150)
[2020-02-18 14:53] LABS: DIRECT LDL 189 mg/dL (<100)
[2020-02-18 14:57] LABS: FREE T3 3.41 pg/mL (2.77-5.27); FREE T4 (FREE THYROXINE) 1.06 ng/dL (0.78-2.19)
[2020-02-18 15:11] LABS: THYROID STIMULATING HORMONE 0.82 uIU/mL (0.47-4.68)
[2020-02-18 15:28] LABS: ERYTHROCYTE SEDIMENTATION RATE 35 mm/hr (0-20)
[2020-02-18 16:41] LABS: ABSOLUTE EOSINOPHILS # (AUTO) 0.3 10^3/uL (0.0-0.6); ABSOLUTE LYMPHOCYTES (AUTO) 1.2 10^3/uL (0.5-4.7); ABSOLUTE MONOCYTES (AUTO) 0.4 10^3/uL (0.1-1.4); ABSOLUTE NEUT (AUTO) 3.6 10^3/uL (1.7-8.2); BASOPHILS % (AUTO) 0.5 % (0-2); EOSINOPHILS % (AUTO) 5.7 % (0-6); HEMATOCRIT 36.9 % (36.0-47.0); HEMOGLOBIN 12.7 g/dL (12.0-15.5); LYMPHOCYTES % (AUTO) 22.1 % (13-45); MEAN CORPUSCULAR HEMOGLOBIN 30.4 pg (27.0-33.4); MEAN CORPUSCULAR HGB CONC 34.3 g/dL (32.0-36.0); MEAN CORPUSCULAR VOLUME 89 fl (80-97); MONOCYTES % (AUTO) 7.7 % (3-13); PLATELET COUNT 320 10^3/uL (150-450); RED BLOOD COUNT 4.16 10^6/uL (3.72-5.28); RED CELL DISTRIBUTION WIDTH 13.7 % (11.5-14.0); TOTAL CELLS COUNTED % (AUTO) 100 %; WHITE BLOOD COUNT 5.6 10^3/uL (4.0-10.5)
[2020-02-18 17:02] LABS: VLDL CHOLESTEROL 39.4 mg/dL (10-31)
== END ==
LOC: OD 09:59
PROVIDERS: ATTEND Family Medicine
DX: M25.50 Pain in unspecified joint (principal); E78.5 Hyperlipidemia, unspecified; R53.83 Other fatigue; R73.03 Prediabetes; R79.89 Other specified abnormal findings of blood chemistry; G89.29 Other chronic pain
CPT/HCPCS: 36415; 80053; 80061; 83036; 84436; 84439; 84443; 84480; 84481; 85652; 86431

== ENCOUNTER → 2020-03-02 | Outpatient (CLI) | payer MEDICARE, MEDICAID ==
--- NOTE | 2020-03-02 13:40 | WOMENS IMAGING REPORT ---
EXAM DESCRIPTION: 3D SCREENING MAMMO BILAT IMAGES COMPLETED DATE/TIME: 03/02/2020 10:47 am REASON FOR STUDY: Z12.31 ENCNTR SCREEN MAMMOGRAM FOR MALIGNANT NEOPLASM OF BREAST Z12.31 ENCNTR SCR EEN MAMMOGRAM FOR MALIGNANT NEOPLASM OF ANTHONY COMPARISON: 11/03/2018, 07/08/2017 EXAM PARAMETERS: Views: Standard craniocaudal and mediolateral oblique views of each breast recorded using digital acquisition and breast tomosynthesis. Read with the assistance of CAD. .[facility] - R2 Rn Fore[employer] Version 9.2 LIMITATIONS: None. FINDINGS: No suspicious masses, suspicious calcifications or architectural distortion. No areas of c oncern. IMPRESSION: NEGATIVE MAMMOGRAM. BIRADS 1. BREAST DENSITY: c. The breasts are heterogeneously dense, which may obscure small masses. BIRAD: ASSESSMENT: 1 NEGATIVE RECOMMENDATION: ROUTINE SCREENING COMMENT: The patient has been notified of the results by letter per MQSA requirements. Additional no tification policies are in place for contacting patient with suspicious or incomplete findings. Quality ID #225: The [employer] recommends an annual screening mammogram for women aged 40 years or over. This facility utilizes a reminder system to ensure that all patients receive reminder letters, and/or direct phone calls for appointments. This includes reminders for routine scr eening mammograms, diagnostic mammograms, or other Breast Imaging Interventions when appropriate. Th is patient will be placed in the appropriate reminder system. TECHNICAL DOCUMENTATION: FINDING NUMBER: (1) ASSESSMENT: (1) JOB ID: [id number] 2010 [employer]- All Rights Reserved Reading location - IP/workstation name: [email or web address]
== END ==
LOC: WI 10:26
PROVIDERS: ATTEND Family Medicine
DX: Z12.31 Encounter for screening mammogram for malignant neoplasm of breast (principal)
CPT/HCPCS: 77063; 77067

== ENCOUNTER → 2020-04-20 | Outpatient (CLI) | payer MEDICARE, MEDICAID ==
[2020-04-20 11:58] LABS: ABSOLUTE EOSINOPHILS # (AUTO) 0.5 10^3/uL (0.0-0.6); ABSOLUTE LYMPHOCYTES (AUTO) 1.6 10^3/uL (0.5-4.7); ABSOLUTE MONOCYTES (AUTO) 0.5 10^3/uL (0.1-1.4); ABSOLUTE NEUT (AUTO) 4.1 10^3/uL (1.7-8.2); BASOPHILS % (AUTO) 0.6 % (0-2); EOSINOPHILS % (AUTO) 7.3 % (0-6); HEMATOCRIT 36.1 % (36.0-47.0); HEMOGLOBIN 12.2 g/dL (12.0-15.5); LYMPHOCYTES % (AUTO) 23.4 % (13-45); MEAN CORPUSCULAR HEMOGLOBIN 29.2 pg (27.0-33.4); MEAN CORPUSCULAR HGB CONC 33.7 g/dL (32.0-36.0); MEAN CORPUSCULAR VOLUME 87 fl (80-97); MONOCYTES % (AUTO) 7.2 % (3-13); PLATELET COUNT 284 10^3/uL (150-450); RED BLOOD COUNT 4.16 10^6/uL (3.72-5.28); RED CELL DISTRIBUTION WIDTH 13.1 % (11.5-14.0); SEGMENTED NEUTROPHILS % (AUTO) 61.5 % (42-78); TOTAL CELLS COUNTED % (AUTO) 100 %; WHITE BLOOD COUNT 6.6 10^3/uL (4.0-10.5)
== END ==
LOC: OD 10:54
PROVIDERS: ATTEND Physician Assistant
DX: F31.32 Bipolar disorder, current episode depressed, moderate (principal); Z79.899 Other long term (current) drug therapy
CPT/HCPCS: 36415; 85025

== ENCOUNTER → 2020-05-29 | Outpatient (CLI) | payer MEDICARE, MEDICAID ==
[2020-05-29 14:51] LABS: ABSOLUTE EOSINOPHILS # (AUTO) 0.4 10^3/uL (0.0-0.6); ABSOLUTE LYMPHOCYTES (AUTO) 1.7 10^3/uL (0.5-4.7); ABSOLUTE MONOCYTES (AUTO) 0.6 10^3/uL (0.1-1.4); ABSOLUTE NEUT (AUTO) 5.4 10^3/uL (1.7-8.2); BASOPHILS % (AUTO) 0.4 % (0-2); EOSINOPHILS % (AUTO) 5.4 % (0-6); HEMATOCRIT 33.8 % (36.0-47.0); HEMOGLOBIN 11.9 g/dL (12.0-15.5); LYMPHOCYTES % (AUTO) 21.2 % (13-45); MEAN CORPUSCULAR HEMOGLOBIN 30.1 pg (27.0-33.4); MEAN CORPUSCULAR HGB CONC 35.2 g/dL (32.0-36.0); MEAN CORPUSCULAR VOLUME 85 fl (80-97); MONOCYTES % (AUTO) 7.3 % (3-13); PLATELET COUNT 294 10^3/uL (150-450); RED BLOOD COUNT 3.95 10^6/uL (3.72-5.28); RED CELL DISTRIBUTION WIDTH 14.1 % (11.5-14.0); SEGMENTED NEUTROPHILS % (AUTO) 65.7 % (42-78); TOTAL CELLS COUNTED % (AUTO) 100 %; WHITE BLOOD COUNT 8.2 10^3/uL (4.0-10.5)
== END ==
LOC: OD 14:14
PROVIDERS: ATTEND Physician Assistant
DX: Z51.81 Encounter for therapeutic drug level monitoring (principal); Z79.899 Other long term (current) drug therapy
CPT/HCPCS: 36415; 85025

== ENCOUNTER → 2020-07-07 | Outpatient (CLI) | payer MEDICARE, MEDICAID ==
[2020-07-07 13:57] LABS: ABSOLUTE EOSINOPHILS # (AUTO) 0.4 10^3/uL (0.0-0.6); ABSOLUTE MONOCYTES (AUTO) 0.6 10^3/uL (0.1-1.4); ABSOLUTE NEUT (AUTO) 5.4 10^3/uL (1.7-8.2); BASOPHILS % (AUTO) 0.4 % (0-2); HEMATOCRIT 34.6 % (36.0-47.0); HEMOGLOBIN 11.7 g/dL (12.0-15.5); LYMPHOCYTES % (AUTO) 23.6 % (13-45); MEAN CORPUSCULAR HEMOGLOBIN 29.4 pg (27.0-33.4); MEAN CORPUSCULAR HGB CONC 33.9 g/dL (32.0-36.0); MEAN CORPUSCULAR VOLUME 87 fl (80-97); MONOCYTES % (AUTO) 7.5 % (3-13); PLATELET COUNT 287 10^3/uL (150-450); RED BLOOD COUNT 3.99 10^6/uL (3.72-5.28); RED CELL DISTRIBUTION WIDTH 13.9 % (11.5-14.0); SEGMENTED NEUTROPHILS % (AUTO) 63.5 % (42-78); TOTAL CELLS COUNTED % (AUTO) 100 %; WHITE BLOOD COUNT 8.4 10^3/uL (4.0-10.5)
== END ==
LOC: OD 13:12
PROVIDERS: ATTEND Physician Assistant
DX: Z51.81 Encounter for therapeutic drug level monitoring (principal); Z79.899 Other long term (current) drug therapy
CPT/HCPCS: 36415; 85025

== ENCOUNTER 2020-09-17 18:35 | Emergency (ER) | payer MEDICARE, MEDICAID ==
--- NOTE | 2020-09-17 20:02 | ER Document Report ---
ED Medical Screen (RME) - General TRAVEL OUTSIDE OF THE [place] IN LAST 30 DAYS: No <JORGE CARRANZA - Last Filed: 09/17/20 20:01> <JOSE KNAPP IV - Last Filed: 09/18/20 03:30> - General Chief Complaint: High Blood Pressure Stated Complaint: ELEVATED BLOOD PRESSURE Time Seen by Provider: 09/17/20 19:55 Primary Care Provider: SHELLI JULIO PA-C [Primary Care Provider] - Follow up as needed Notes: Patient is a 45-year-old female presents emergency department with a chief complaint of elevated blood pressure readings and feeling, "shaky." Patient states that her blood pressure was in the 180s over 100s at home. States that she took a Xanax at 6:00 this evening to try to help, but still feels shaky. She was also started on Levaquin and prednisone for bronchitis. States that she has some chest pressure. Exam: Patient appears nervous. I have greeted and performed a rapid initial assessment of this patient. A comprehensive ED assessment and evaluation of the patient, analysis of test results and completion of medical decision making process will be conducted by an additional ED providers. (JORGE CARRANZA) - Related Data Allergies/Adverse Reactions: No Known Allergies Allergy (Unverified 11/02/12 22:06) Past Medical History - Past Medical History Cardiac Medical History: Reports: Hx Hypercholesterolemia Denies: Hx Coronary Artery Disease, Hx Heart Attack, Hx Hypertension Pulmonary Medical History: Reports: Hx Asthma - ON ALBUTEROL AND VENTOLIN, Hx Bronchitis, Hx Pneumonia Denies: Hx COPD Neurological Medical History: Reports: Hx Migraine Endocrine Medical History: Reports: Hx Hypothyroidism Musculoskeltal Medical History: Denies Hx Arthritis, Reports Hx Fibromyalgia Psychiatric Medical History: Reports: Hx Anxiety, Hx Bipolar Disorder, Hx Borderline Personality Disorder, Hx Depression, Hx Personality Disorder Past Surgical History: Reports: Hx Cholecystectomy - Immunizations Immunizations up to date: Yes Hx Diphtheria, Pertussis, Tetanus Vaccination: Yes <JORGE CARRANZA - Last Filed: 09/17/20 20:01> Physical Exam - Vital signs Vitals: Temp Pulse Resp BP Pulse Ox 98.3 F 108 H 20 166/105 H 100 09/17/20 19:08 09/17/20 19:08 09/17/20 19:08 09/17/20 19:08 09/17/20 19:08 Course - Laboratory Results Result Diagrams: 09/17/20 20:20 09/17/20 20:20 <JOSE KNAPP IV - Last Filed: 09/18/20 03:30> - Re-evaluation Re-evalutation: 09/18/20 03:23 Differential diagnosis: Anxiety, essential hypertension, ACS, renal dysfunction (JOSE KNAPP IV) - Vital Signs Vital signs: Temp Pulse Resp BP Pulse Ox 98.3 F 119 H 18 125/99 H 100 09/18/20 01:38 09/17/20 23:17 09/18/20 01:38 09/18/20 01:38 09/18/20 01:38 - EKG Interpretation by Me Additional EKG results interpreted by me: 09/18/20 03:24 EKG obtained on 09/17/2020 at 2010 hrs. was interpreted by this MD. Findings: Normal sinus rhythm, rate 88, normal axis, P waves preceding QRS complexes, VT interval appears to be within normal limits, QRS complex appears narrow, QTC is 441, there are no obvious patterns of ST segment elevation, depression or reciprocal changes seen to suggest acute myocardial ischemia or infarction. When compared with prior EKG from 08/29/2013, the gross morphology of the 2 EKGs appears to be quite similar. Impression: Normal sinus rhythm with nonspecific ST segments. (JOSE KNAPP IV) Doctor's Discharge <DILLONJORGE Gwen - Last Filed: 09/17/20 20:01> <JOSE KNAPP IV - Last Filed: 09/18/20 03:30> - Discharge Referrals: SHELLI JULIO PA-C [Primary Care Provider] - Follow up as needed
[2020-09-17 20:54] LABS: ABSOLUTE EOSINOPHILS # (AUTO) 0.1 10^3/uL (0.0-0.6); ABSOLUTE LYMPHOCYTES (AUTO) 1.5 10^3/uL (0.5-4.7); ABSOLUTE MONOCYTES (AUTO) 0.9 10^3/uL (0.1-1.4); ABSOLUTE NEUT (AUTO) 6.6 10^3/uL (1.7-8.2); BASOPHILS % (AUTO) 0.3 % (0-2); EOSINOPHILS % (AUTO) 1.4 % (0-6); HEMATOCRIT 37.4 % (36.0-47.0); HEMOGLOBIN 12.7 g/dL (12.0-15.5); LYMPHOCYTES % (AUTO) 16.8 % (13-45); MEAN CORPUSCULAR HEMOGLOBIN 29.5 pg (27.0-33.4); MEAN CORPUSCULAR HGB CONC 33.9 g/dL (32.0-36.0); MEAN CORPUSCULAR VOLUME 87 fl (80-97); MONOCYTES % (AUTO) 9.7 % (3-13); PLATELET COUNT 310 10^3/uL (150-450); RED BLOOD COUNT 4.29 10^6/uL (3.72-5.28); SEGMENTED NEUTROPHILS % (AUTO) 71.8 % (42-78); TOTAL CELLS COUNTED % (AUTO) 100 %; WHITE BLOOD COUNT 9.2 10^3/uL (4.0-10.5)
[2020-09-17 21:01] LABS: ALBUMIN 4.4 g/dL (3.5-5.0); ALKALINE PHOSPHATASE 104 U/L (38-126); ANION GAP 6 (5-19); ASPARTATE AMINO TRANSFERASE 29 U/L (14-36); BILIRUBIN,DIRECT 0.2 mg/dL (0.0-0.4); BILIRUBIN,TOTAL 0.5 mg/dL (0.2-1.3); BLOOD UREA NITROGEN 16 mg/dL (7-20); CALCIUM 9.8 mg/dL (8.4-10.2); CARBON DIOXIDE 30 mmol/L (22-30); CHLORIDE 103 mmol/L (98-107); CREATINE KINASE 52 U/L (30-135); GLUCOSE 101 mg/dL (75-110); POTASSIUM 3.6 mmol/L (3.6-5.0); TOTAL PROTEIN 7.4 g/dL (6.3-8.2)
--- NOTE | 2020-09-17 21:08 | RADIOLOGY REPORT (SQ) ---
EXAM DESCRIPTION: XR CHEST 2 VIEWS COMPLETED DATE/TME: 09/17/2020 20:43 CLINICAL HISTORY: 45 years, Female, chest tightness COMPARISON: August 28, 2013. NUMBER OF VIEWS: 2 TECHNIQUE: 2 views of the chest were obtained. LIMITATIONS: None. FINDINGS: The heart size is within normal limits. Lungs appear clear. There is no evidence of pleural effusion or pneumothorax. No acute bony abnormality is seen. IMPRESSION: No acute abnormality as above. copyright 2010 [employer]- All Rights Reserved
--- NOTE | 2020-09-17 21:18 | EKG REPORT ---
SEVERITY:- ABNORMAL ECG - SINUS RHYTHM LEFT AXIS DEVIATION NONSPECIFIC ST-T CHANGES DIFFUSE. : Confirmed by: Oracio Pelletier MD 17-Sep-2020 21:17:59
[2020-09-18] MEDS ORDERED: HYDRALAZINE HCL INJ/PF 20 MG/1 ML SDV IV ONE (03:22)
[2020-09-18] MEDS ORDERED: ALPRAZOLAM 0.5 MG TABLET PO ONE (03:22)
[2020-09-18] MEDS ORDERED: NORMAL SALINE 1000 ML 1,000 ML IV ONE (03:22)
[2020-09-18] MEDS ORDERED: BENAZEPRIL HCL 20 MG TABLET PO ONE (03:38)
--- NOTE | 2020-09-18 03:50 | ER Document Report ---
Entered by JAMES ALEGRIA SCRIBE 09/18/20 0313 Acting as scribe for:JOSE KNAPP IV, MD ED Blood Pressure Problem - General Chief Complaint: Chest Pressure Stated Complaint: ELEVATED BLOOD PRESSURE Time Seen by Provider: 09/17/20 19:55 Primary Care Provider: SHELLI JULIO PA-C [Primary Care Provider] - Follow up as needed Information source: Patient Notes: This 45-year-old female patient presents to the emergency department today with complaints of elevated blood pressures at home today. Patient reports that she is not on blood pressure medicine and she has never had an elevated blood pressure in the past until today. Patient reports that she has bad anxiety and she does appear to be quite anxious today. Patient mentions some intermittent stabbing chest pain as well as a headache. Patient mentions that she has not eaten since 5 PM last night and she thinks that her headache is due to that. TRAVEL OUTSIDE OF THE [place] IN LAST 30 DAYS: No - Related Data Allergies/Adverse Reactions: No Known Allergies Allergy (Unverified 11/02/12 22:06) Home Medications: xanax. prezosyn. lexipro. lamictal. safrice. prednisone Past Medical History - General Information source: Patient - Social History Smoking Status: Never Smoker Cigarette use (# per day): No Chew tobacco use (# tins/day): No Frequency of alcohol use: None Drug Abuse: None Family History: CAD - Past Medical History Cardiac Medical History: Reports: Hx Hypercholesterolemia Pulmonary Medical History: Reports: Hx Asthma - ON ALBUTEROL AND VENTOLIN, Hx Bronchitis, Hx Pneumonia Neurological Medical History: Reports: Hx Migraine Endocrine Medical History: Reports: Hx Hypothyroidism Musculoskeletal Medical History: Reports Hx Fibromyalgia Psychiatric Medical History: Reports: Hx Anxiety, Hx Bipolar Disorder, Hx Borderline Personality Disorder, Hx Depression, Hx Personality Disorder Past Surgical History: Reports: Hx Cholecystectomy - Immunizations Immunizations up to date: Yes Hx Diphtheria, Pertussis, Tetanus Vaccination: Yes Review of Systems - Review of Systems Constitutional: No symptoms reported EENT: No symptoms reported Cardiovascular: See HPI, Chest pain, Other - elevated BP Respiratory: No symptoms reported Gastrointestinal: No symptoms reported Genitourinary: No symptoms reported Female Genitourinary: No symptoms reported Musculoskeletal: No symptoms reported Skin: No symptoms reported Hematologic/Lymphatic: No symptoms reported Neurological/Psychological: See HPI, Anxiety, Headaches -: Yes All other systems reviewed and negative Physical Exam - Vital signs Vitals: Temp Pulse Resp BP Pulse Ox 98.3 F 108 H 20 166/105 H 100 09/17/20 19:08 09/17/20 19:08 09/17/20 19:08 09/17/20 19:08 09/17/20 19:08 - Notes Notes: Physical Exam: General: Alert, appears well. HEENT: Normocephalic. Atraumatic. PERRL. Extraocular movements intact. Oropharynx clear. Neck: Supple. Non-tender. Respiratory: No respiratory distress. Clear and equal breath sounds bilaterally. Cardiovascular: Tachycardic, regular rhythm. Abdominal: Normal Inspection. Non-tender. No distension. Normal Bowel Sounds. Back: No gross abnormalities. Extremities: Moves all four extremities. Upper extremities: Normal inspection. Normal ROM. Lower extremities: Normal inspection. No edema. Normal ROM. Neurological: Normal cognition. AAOx4. Normal speech. Psychological: Appears to be quite anxious Skin: Warm. Dry. Normal color. Course - Re-evaluation Re-evalutation: 09/18/20 04:53 Differential diagnosis: Anxiety, essential hypertension, acute coronary syndrome, electrolyte abnormality MDM: Patient has responded well to 2.5 of Xanax and 20 mg of benazepril. I think she has some essential hypertension as well as some anxiety. I do not think the praises and is helping her in terms of her blood pressure and I have recommended that she discontinue that. I am giving the patient a prescription for benazepril 20 mg p.o. nightly since she takes all her other medications at bedtime. She has been instructed to follow-up with her primary care provider within the next 2 days. Results of ED MSE discussed with patient. Patient states she is feeling better. All questions were answered prior to discharge. Emergency signs and symptoms, reasons to return to the emergency department discussed with patient. - Vital Signs Vital signs: Temp Pulse Resp BP Pulse Ox 98.3 F 119 H 12 141/96 H 100 09/18/20 01:38 09/17/20 23:17 09/18/20 04:30 09/18/20 04:30 09/18/20 04:30 - Laboratory Results Result Diagrams: 09/17/20 20:20 09/17/20 20:20 Critical Laboratory Results Reviewed: No Critical Results - Radiology Results Critical Radiology Results Reviewed: No Critical Results - EKG Interpretation by Me Additional EKG results interpreted by me: 09/18/20 04:56 EKG performed on 09/17/2020 at 2010 hrs. was interpreted by this MD. Findings: Normal sinus rhythm, heart rate 88, left axis deviation is present, TX interval appears to be within normal limits, P waves preceding QRS complexes, QRS complexes appear narrow, QTC is 441, there are no obvious patterns of ST segment elevation, depression or reciprocal changes seen to suggest acute myocardial ischemia or infarction. Impression normal sinus rhythm with left axis deviation and nonspecific ST segments. Discharge - Discharge Clinical Impression: Anxiety High blood pressure Qualifiers: Hypertension type: unspecified Qualified Code(s): I10 - Essential (primary) hypertension Condition: Stable Disposition: HOME, SELF-CARE Instructions: Angiotensin Converting Enzyme Inhibitor Medication ([facility]), High Blood Pressure ([facility]) Additional Instructions: Return to the Emergency Department without delay if any worse. HOME CARE INSTRUCTIONS & INFORMATION: Thank you for choosing us for your medical needs. We hope you're satisfied with the care you received. After you leave, you must properly care for your problem and, at the same time, observe its progress. Any condition can change. Some illnesses can change rapidly over hours or days. If your condition worsens, return to the Emergency Department or see your physician promptly. ABOUT YOUR X-RAYS AND EKG'S: If you had an EKG or X-rays taken, they have been read by the Emergency Physician. The X-rays and EKG's will also be read by a Radiologist or Direct Service Provider within 24 hours. If discrepancies are noted, you will be notified by telephone. Please be certain the ED has a correct telephone number & address where you can be reached. Also, realize that some fractures or abnormalities do not show up on initial X-rays. If your symptoms continue, see your physician. ABOUT YOUR LABORATORY TEST: If you had laboratory tests, the results have been reviewed by the Emergency Physician. Some test results (for example cultures) may not be available for several days. You will be contacted if any test result shows you need additional treatment. Please be certain the ED has a correct telephone number and address where you can be reached. ABOUT YOUR MEDICATIONS: You will receive instructions on how to take your medicine on the prescription label you receive. Additional information may be provided by the Pharmacy. If you have questions afterwards, call the ED for clarification or further instructions. Some prescribed medications may cause drowsiness. Do not perform tasks such as driving a car or operating machinery without consulting your Pharmacist. If you feel you need a refill of pain medication, your condition will need re-evaluation. Please do not call for a refill of any medication. ABOUT YOUR SIGNATURE: Signature of this document acknowledges to followin. Understanding that you received emergency treatment and that you may be released before al medical problems are known or treated. Please be certain the ED has a correct phone number & address where you can be reached. 2. Acknowledgement that you will arrange for follow-up care as recommended. 3. Authorization for the Emergency Physician to provide information to your follow-up Physician in order to maximize your care. AT ANY TIME, IF YOUR SYMPTOMS CHANGE SIGNIFICANTLY OR WORSEN OR YOU DEVELOP NEW SYMPTOMS, RETURN TO THE EMERGENCY DEPARTMENT IMMEDIATELY FOR RE-EVALUATION. OUR GOAL IS TO PROVIDE EXCELLENT MEDICAL CARE! WE HOPE THAT WE HAVE MET YOUR EXPECTATIONS DURING YOUR EMERGENCY DEPARTMENT VISIT AND THAT YOU FEEL YOU HAVE RECEIVED EXCELLENT CARE! Prescriptions: Benazepril HCl 20 mg PO QHS 30 Days #30 tablet Referrals: SHELLI JULIO PA-C [Primary Care Provider] - Follow up as needed I personally performed the services described in the documentation, reviewed and edited the documentation which was dictated to the scribe in my presence, and it accurately records my words and actions.
[2020-09-18] MEDS ORDERED: BENAZEPRIL HCL 20 MG TABLET ONE (04:18)
[2020-09-18 05:40] VITALS: BP 134/94
--- OUTSIDE RECORDS SUMMARY | 2020-09-20 09:17 | XMS REPORT ---
:1975 Author Organization [facility] Address [facility] [place] [address] [place] [id number] Care Team Providers Name Role Phone James Attending Clinician Unavailable James Attending Clinician Unavailable Allergies, Adverse Reactions, Alerts This patient has no known allergies or adverse reactions. Medications This patient has no known medications. Problems This patient has no known problems. Procedures Procedure Date / Time Performed Performing Clinician Devic e OFFICE/OUTPATIENT VISIT EST 2020-02-01 09:15:00 OFFICE/OUTPATIENT VISIT EST 2018-09-29 09:30:00 OFFICE/OUTPATIENT VISIT EST 2018-02-02 16:00:00 OFFICE/OUTPATIENT VISIT EST 2018-01-06 14:00:00 OFFICE/OUTPATIENT VISIT EST 2017-12-30 09:15:00 OFFICE/OUTPATIENT VISIT EST 2017-07-22 09:00:00 OFFICE/OUTPATIENT VISIT EST 2017-06-20 09:00:00 OFFICE/OUTPATIENT VISIT EST 2016-12-02 09:30:00 Results Test Description Test Time Test Comments Text Results Atomic Results Result Comments SARS-CoV-2 RNA Resp Ql SALENA+probe 2020-07-16 00:00:00 Test Item Value Reference Range Comments SARS-CoV-2 RNA Resp Ql SALENA+probe Not detected [facility] Case ID: (test code = 33299-3) [id number] SARS-CoV-2, SALENA\S\2020-07-14 10:54:00 Test Item Value Reference Range Comments SARS-CoV-2, SALENA (test code = 49032-3) Not Detected Not Detect ed RHEUMATOID ARTHRITIS FACTOR\S\2020-02-18 10:26:00 Test Item Value Reference Range Comments RHEUMATOID ARTHRITIS FACTOR (test code = RF) < 8.6 IU/mL <12 .0 LIPID PANEL\S\2020-02-18 10:26:00 Test Item Value Reference Range Comments Direct HDL (test code = DHDL) 41 mg/dL >40 CHOLESTEROL (test code = CHOL) 292.49 mg/dL 0-200 TRIGLYCERIDES (test code = TRIG) 197 mg/dL <150 DIRECT LDL (test code = DLDL) 189 mg/dL <100 VLDL CHOLESTEROL (test code = VLDL) 39.4 mg/dL 10-31 TOTAL T3\S\2020-02-18 10:26:00 Test Item Value Reference Range Comments TOTAL T3 (test code = TT3) 1.34 ng/mL 0.970-1.69 THYROXINE T4\S\2020-02-18 10:26:00 Test Item Value Reference Range Comments THYROXINE T4 (test code = D6QVTNV) 8.87 ug/dL 5.53-11.0 ERYTHROCYTE SEDIMENTATION RATE\S\2020-02-18 10:26:00 Test Item Value Reference Range Comments ERYTHROCYTE SEDIMENTATION RATE (test code = ESR) 35 mm/hr 0-20 HEMOGLOBIN A1C\S\2020-02-18 10:26:00 Test Item Value Reference Range Comments HEMOGLOBIN A1C (test code = A1CV) 5.0 % 4.7-6.0 CBC WITH DIFF\S2020-02-18 10:26:00 Test Item Value Reference Range Comments LYMPHOCYTES % (AUTO) (test code = LY%) 22.1 % 13-45 HEMATOCRIT (test code = HCT) 36.9 % 36.0-47.0 ABSOLUTE EOSINOPHILS # (AUTO) (test code = EO#) 0.3 10 3/uL 0.0-0.6 EOSINOPHILS % (AUTO) (test code = EO%) 5.7 % 0-6 MONOCYTES % (AUTO) (test code = MO%) 7.7 % 3-13 ABSOLUTE BASOPHILS # (AUTO) (test code = BA#) 0.0 10 3/uL 0. 0-0.2 MEAN CORPUSCULAR VOLUME (test code = MCV) 89 fl 80-97 BASOPHILS % (AUTO) (test code = BA%) 0.5 % 0-2 RED CELL DISTRIBUTION WIDTH (test code = RDW) 13.7 % 11 .5-14.0 MEAN CORPUSCULAR HEMOGLOBIN (test code = MCH) 30.4 pg 27 .0-33.4 ABSOLUTE MONOCYTES (AUTO) (test code = MO#) 0.4 10 3/uL 0.1- 1.4 WHITE BLOOD COUNT (test code = WBC) 5.6 10 3/uL 4.0-10.5 ABSOLUTE LYMPHOCYTES (AUTO) (test code = LY#) 1.2 10 3/uL 0. 5-4.7 SEGMENTED NEUTROPHILS % (AUTO) (test code = 64.0 % 42-7 8 SEG%) ABSOLUTE NEUT (AUTO) (test code = NE#) 3.6 10 3/uL 1.7-8.2 MEAN CORPUSCULAR HGB CONC (test code = MCHC) 34.3 g/dL 32. 0-36.0 PLATELET COUNT (test code = PLT) 320 10 3/uL 150-450 RED BLOOD COUNT (test code = RBC) 4.16 10 6/uL 3.72-5.28 HEMOGLOBIN (test code = HGB) 12.7 g/dL 12.0-15.5 THYROID STIMULATING HORMONE\S\2020-02-18 10:26:00 Test Item Value Reference Range Comments THYROID STIMULATING HORMONE (test code = TSHE) 0.82 uIU/mL 0 .47-4.68 COMPREHENSIVE METABOLIC PANEL\S\2020-02-18 10:26:00 Test Item Value Reference Range Comments EGFR,NON (test code = GFRN) 59 >60 POTASSIUM (test code = K) 4.1 mmol/L 3.6-5.0 CARBON DIOXIDE (test code = CO2) 24 mmol/L 22-30 ANION GAP (test code = ANION) 8 5-19 ALKALINE PHOSPHATASE (test code = ALKP) 109 U/L 38-126 EGFR, (test code = GFRAA) > 60 >60 BILIRUBIN,TOTAL (test code = TBIL) 0.5 mg/dL 0.2-1.3 ALANINE AMINOTRANSFERASE (test code = ALTV) 13 U/L <35 BILIRUBIN,DIRECT (test code = BC) 0.0 mg/dL 0.0-0.4 ASPARTATE AMINO TRANSFERASE (test code = AST) 23 U/L 14 -36 TOTAL PROTEIN (test code = TP) 7.4 g/dL 6.3-8.2 BLOOD UREA NITROGEN (test code = BUN) 14 mg/dL 7-20 ALBUMIN (test code = ALB) 4.3 g/dL 3.5-5.0 CREATININE RESULT (test code = CREA) 1.01 mg/dL 0.52-1.25 CHLORIDE (test code = CL-1) 107 mmol/L 98-107 SODIUM (test code = NA) 139.4 mmol/L 137-145 GLUCOSE (test code = GLU) 103 mg/dL 75-110 CALCIUM (test code = CA) 9.2 mg/dL 8.4-10.2 FREE T3\S\2020-02-18 10:26:00 Test Item Value Reference Range Comments FREE T3 (test code = FT3E) 3.41 pg/mL 2.77-5.27 FREE T4 (FREE THYROXINE)\S\2020-02-18 10:26:00 Test Item Value Reference Range Comments FREE T4 (FREE THYROXINE) (test code = FT4E) 1.06 ng/dL 0.78 -2.19 SARS-CoV-2 RNA Resp Ql SALENA+[id number] 00:00:00 Test Item Value Reference Range Comments SARS-CoV-2 RNA Resp Ql Not detected [facility] SAL[place]+probe (test code = ID: [id number] 96363-2) T3, [id number] 00:00:86710XAUTS PANEL, [id number] 00:00:00 Test Item Value Reference Range Comments NON HDL CHOLESTEROL (test code = 68389287) 93 mg/dL (calc) <130 CHOL/HDLC RATIO (test code = 06410940) 3.5 (calc) <5.0 TRIGLYCERIDES (test code = 49854811) 146 mg/dL <150 CHOLESTEROL, TOTAL (test code = 24113900) 130 mg/dL <200 HDL CHOLESTEROL (test code = 80978355) 37 mg/dL >50 LDL-CHOLESTEROL (test code = 66435878) 70 mg/dL (calc) CBC (H/H, RBC, INDICES, WBC, PLT)2018-09-29 00:00:00 Test Item Value Reference Range Comments WHITE BLOOD CELL COUNT (test code = 6.0 Thousand/uL 3.8-10.8 86366712) RED BLOOD CELL COUNT (test code = 66283372) 3.93 Million/uL 3.80 -5.10 MCHC (test code = 32181458) 34.1 g/dL 32.0-36.0 PLATELET COUNT (test code = 00847983) 293 Thousand/uL 140-400 MPV (test code = 37273854) 11.1 fL 7.5-12.5 HEMOGLOBIN (test code = 39409493) 11.8 g/dL 11.7-15.5 RDW (test code = 51390014) 12.3 % 11.0-15.0 HEMATOCRIT (test code = 08901848) 34.6 % 35.0-45.0 MCH (test code = 53427790) 30.0 pg 27.0-33.0 MCV (test code = 67182406) 88.0 fL 80.0-100.0 T4 (THYROXINE), [id number] 00:00:007.2T3, [id number] 00:00:002.7 HEMOGLOBIN A1c WITH [id number] 00:00:00 Test Item Value Reference Range Comments eAG (mmol/L) (test code = 74488925) 6.0 (calc) HEMOGLOBIN A1c (test code = 27614505) 5.4 % of total Hgb <5.7 eAG (mg/dL) (test code = 28201478) 108 (calc) COMPREHENSIVE METABOLIC [id number] 00:00:00 Test Item Value Reference Range Comments eGFR (test code = 85 mL/min/1.73m2 > OR = 60 69203221) eGFR NON-AFR. MONTENEGRIN (test code = 73 mL/min/1.73m2 > OR = 60 17768737) CALCIUM (test code = 83101221) 9.0 mg/dL 8.6-10.2 CREATININE (test code = 57131422) 0.94 mg/dL 0.50-1.10 AST (test code = 98196189) 15 U/L 10-35 CHLORIDE (test code = 98869924) 107 mmol/L 98-110 ALBUMIN (test code = 55641175) 3.9 g/dL 3.6-5.1 PROTEIN, TOTAL (test code = 79414814) 6.5 g/dL 6.1-8.1 BUN/CREATININE RATIO (test code = NOT APPLICABLE (calc) 6-22 07727612) ALBUMIN/GLOBULIN RATIO (test code = 1.5 (calc) 1.0-2.5 18147025) GLUCOSE (test code = 91363708) 87 mg/dL 65-99 POTASSIUM (test code = 50704059) 3.5 mmol/L 3.5-5.3 BILIRUBIN, TOTAL (test code = 0.4 mg/dL 0.2-1.2 52959796) SODIUM (test code = 16530263) 142 mmol/L 135-146 CARBON DIOXIDE (test code = 38968853) 29 mmol/L 20-32 GLOBULIN (test code = 82622522) 2.6 g/dL (calc) 1.9-3.7 ALT (test code = 77775118) 18 U/L 6-29 UREA NITROGEN (BUN) (test code = 12 mg/dL 7-25 16759810) ALKALINE PHOSPHATASE (test code = 93 U/L 33-115 63187293) T4, [id number] 00:00:[id number] 00:00:001.32VITAMIN D,25-OH,TOTAL,IA 2018-09-29 00:00:[id number] 00:00:001.05T4, [id number] 00:00:001.1 HEMOGLOBIN A1c WITH [id number] 00:00:00 Test Item Value Reference Range Comments eAG (mmol/L) (test code = 60384295) 5.5 (calc) HEMOGLOBIN A1c (test code = 11516716) 5.1 % of total Hgb <5.7 eAG (mg/dL) (test code = 01596999) 100 (calc) LIPID [id number] 00:00:00 Test Item Value Reference Range Comments HDL CHOLESTEROL (test code = 41732417) 42 mg/dL >50 CHOLESTEROL, TOTAL (test code = 47471555) 257 mg/dL <200 NON HDL CHOLESTEROL (test code = 41102806) 215 mg/dL (calc) <130 CHOL/HDLC RATIO (test code = 02437024) 6.1 (calc) <5.0 LDL-CHOLESTEROL (test code = 40281108) 183 mg/dL (calc) TRIGLYCERIDES (test code = 70864268) 170 mg/dL <150 CBC (H/H, RBC, INDICES, WBC, PLT)2017-12-30 00:00:00 Test Item Value Reference Range Comments RED BLOOD CELL COUNT (test code = 97020849) 4.35 Million/uL 3.80 -5.10 PLATELET COUNT (test code = 50144585) 285 Thousand/uL 140-400 MCHC (test code = 19806527) 33.1 g/dL 32.0-36.0 MCH (test code = 04988383) 30.1 pg 27.0-33.0 MCV (test code = 14440295) 91.0 fL 80.0-100.0 MPV (test code = 82219604) 11.0 fL 7.5-12.5 HEMOGLOBIN (test code = 24162954) 13.1 g/dL 11.7-15.5 RDW (test code = 74532228) 13.5 % 11.0-15.0 HEMATOCRIT (test code = 63895310) 39.6 % 35.0-45.0 WHITE BLOOD CELL COUNT (test code = 5.8 Thousand/uL 3.8-10.8 82527425) T3, [id number] 00:00:[id number] 00:00:005.4COMPREHENSIVE METABOLIC [id number] 00:00:00 Test Item Value Reference Range Comments BILIRUBIN, TOTAL (test code = 54837909) 0.4 mg/dL 0.2-1.2 ALBUMIN (test code = 45823899) 4.2 g/dL 3.6-5.1 CALCIUM (test code = 94803460) 9.6 mg/dL 8.6-10.2 ALT (test code = 72900377) 12 U/L 6-29 ALBUMIN/GLOBULIN RATIO (test code = 1.4 (calc) 1.0-2.5 26637046) CARBON DIOXIDE (test code = 85584599) 25 mmol/L 20-31 SODIUM (test code = 87057617) 140 mmol/L 135-146 eGFR NON-AFR. MONTENEGRIN (test code = 58 mL/min/1.73m2 > OR = 60 37297501) GLUCOSE (test code = 42474655) 85 mg/dL 65-99 CREATININE (test code = 60733639) 1.14 mg/dL 0.50-1.10 PROTEIN, TOTAL (test code = 75895928) 7.3 g/dL 6.1-8.1 BUN/CREATININE RATIO (test code = 96452765) 17 (calc) 6-22 POTASSIUM (test code = 10659369) 4.1 mmol/L 3.5-5.3 eGFR (test code = 68 mL/min/1.73m2 > OR = 60 24991014) UREA NITROGEN (BUN) (test code = 55269919) 19 mg/dL 7-25 GLOBULIN (test code = 69258585) 3.1 g/dL (calc) 1.9-3.7 CHLORIDE (test code = 02493095) 106 mmol/L 98-110 ALKALINE PHOSPHATASE (test code = 64822190) 68 U/L 33-1 15 AST (test code = 17125678) 17 U/L 10-30 MICROALBUMIN, RANDOM URINE (W/CREATININE)2017-12-30 00:00:00 Test Item Value Reference Range Comments MICROALBUMIN (test code = 44403831) 0.9 mg/dL MICROALBUMIN/CREATININE RATIO, RANDOM URINE 2 mcg/mg creat <30 (test code = 22302803) CREATININE, RANDOM URINE (test code = 386 mg/dL 20-320 10861416) TESTOSTERONE, TOTAL, [id number] 00:00:0018T4 (THYROXINE), TOTAL 2017-12-30 00:00:008.5T3, [id number] 00:00:[id number] 00:00:[id number] 00:00:[id number] 00:00:0012.0T3 Total 2017-06-20 00:01:00 Test Item Value Reference Range Comments T3 (test code = 646490) 119.0 ng/dL 76-181 CBC with [id number] 00:01:00 Test Item Value Reference Range Comments Lymph % (test code = 404592) 20 % MCHC (test code = 139016) 32.6 g/dL 32.0-36.0 MPV (test code = 441901) 11.2 fL 7.5-12.5 Baso % (test code = 427720) 0 % Absolute Neut (test code = 4284 cells/uL 3508-2042 853188) Absolute Baso (test code = 0 cells/uL 0-200 828039) MCH (test code = 382751) 29.6 pg 27.0-33.0 Platelet Count (test code = 261 K/uL 140-400 311816) Absolute [place] (test code = 748 cells/uL 200-950 612844) Absolute Eos (test code = 408 cells/uL 15-500 015527) Smear Review (test code = Criteria for review not met 125976) Hemoglobin (test code = 925795) 12.8 g/dL 11.7-15.5 Eos % (test code = 464206) 6 % WBC (test code = 782976) 6.8 K/uL 3.8-10.8 Hematocrit (test code = 772586) 39.3 % 35.0-45.0 [place] % (test code = 818985) 11 % RBC (test code = 800282) 4.32 MIL/uL 3.80-5.10 Neutrophils % (test code = 63 % 352069) Absolute Lymph (test code = 1360 cells/uL 850-3900 735466) RDW (test code = 569968) 13.2 % 11.0-15.0 MCV (test code = 656787) 91.0 fL 80.0-100.0 [id number] 00:01:00 Test Item Value Reference Range Comments TSH (test code = 436296) 2.41 mIU/L CMP with Estimated [id number] 00:01:00 Test Item Value Reference Range Comments Alkaline Phosphatase (test code = 622466) 115 U/L 33-115 Calcium (test code = 216710) 9.3 mg/dL 8.6-10.2 Sodium (test code = 003812) 139 mmol/L 135-146 Albumin (test code = 191661) 3.9 g/dL 3.6-5.1 CO2 (test code = 335143) 22 mmol/L 20-31 Est GFR, NonAfrican Nigerien (test code = 999531) 63 mL/min >=60 Chloride (test code = 149651) 104 mmol/L 98-110 Glucose (test code = 578361) 105 mg/dL 65-99 AST/SGOT (test code = 377295) 36 U/L 10-30 Potassium (test code = 557925) 4.1 mmol/L 3.5-5.3 Est GFR, (test code = 915960) 73 mL/min > =60 ALT/SGPT (test code = 561402) 37 U/L 6-29 BUN (test code = 318775) 16 mg/dL 7-25 Total Protein (test code = 193772) 7.3 g/dL 6.1-8.1 Creatinine (test code = 374249) 1.07 mg/dL 0.50-1.10 Bilirubin, Total (test code = 587589) 0.5 mg/dL 0.2-1.2 Lipid [id number] 00:01:00 Test Item Value Reference Range Comments Cholesterol (test code = 176207) 240 mg/dL 125-200 Triglycerides (test code = 184809) 242 mg/dL <150 LDL Cholesterol (Calc) (test code = 912834) 158 mg/dL <130 HDL Cholesterol (test code = 138964) 34 mg/dL >=46 VLDL Cholesterol (Calc) (test code = 062570) 48 mg/dL <30 Total Chol/HDL Ratio (test code = 343202) 7.1 Ratio <=5.0 T4 (Thyroxine), [id number] 00:01:00 Test Item Value Reference Range Comments T4 (test code = 795612) 8.9 ug/dL 4.5-12.0 T3, [id number] 00:01:00 Test Item Value Reference Range Comments T3, Free (test code = 850166) 2.8 pg/mL 2.3-4.2 Hemoglobin A1c with [id number] 00:01:00 Test Item Value Reference Range Comments Hemoglobin A1C (test code = 404077) 5.0 % <5.7 eAG (calc) (test code = 650245) 97 mg/dL T4 Free (FT4)2017-06-20 00:01:00 Test Item Value Reference Range Comments Free T4 (test code = 027284) 1.2 ng/dL 0.8-1.8 CMP with Estimated [id number] 00:01:00 Test Item Value Reference Range Comments Albumin (test code = 047178) 3.9 g/dL 3.6-5.1 Total Protein (test code = 132257) 6.9 g/dL 6.1-8.1 BUN (test code = 430978) 14 mg/dL 7-25 Glucose (test code = 538497) 87 mg/dL 65-99 ALT/SGPT (test code = 144546) 12 U/L 6-29 Sodium (test code = 165924) 140 mmol/L 135-146 Bilirubin, Total (test code = 843080) 0.4 mg/dL 0.2-1.2 Calcium (test code = 067004) 8.9 mg/dL 8.6-10.2 Creatinine (test code = 913339) 0.92 mg/dL 0.50-1.10 Potassium (test code = 261967) 3.7 mmol/L 3.5-5.3 Alkaline Phosphatase (test code = 147549) 71 U/L 33-115 Est GFR, (test code = 389412) 88 mL/min > =60 CO2 (test code = 520773) 23 mmol/L 20-31 AST/SGOT (test code = 476775) 13 U/L 10-30 Est GFR, NonAfrican Nigerien (test code = 623299) 77 mL/min >=60 Chloride (test code = 813661) 107 mmol/L 98-110 T4 Free (FT4)2016-12-02 00:01:00 Test Item Value Reference Range Comments Free T4 (test code = 993160) 1.2 ng/dL 0.8-1.8 T3 [id number] 00:01:00 Test Item Value Reference Range Comments T3 (test code = 698920) 100.0 ng/dL 76-181 CBC NO Diff (Complete Blood Count)2016-12-02 00:01:00 Test Item Value Reference Range Comments WBC (test code = 853639) 5.3 K/uL 3.8-10.8 MCV (test code = 623990) 89.2 fL 80.0-100.0 Hemoglobin (test code = 369042) 12.0 g/dL 11.7-15.5 MCHC (test code = 348759) 33.1 g/dL 32.0-36.0 RBC (test code = 858585) 4.07 MIL/uL 3.80-5.10 Hematocrit (test code = 788299) 36.3 % 35.0-45.0 MPV (test code = 335617) 10.7 fL 7.5-12.5 RDW (test code = 335078) 13.6 % 11.0-15.0 MCH (test code = 856961) 29.5 pg 27.0-33.0 Platelet Count (test code = 400609) 338 K/uL 140-400 Lipid [id number] 00:01:00 Test Item Value Reference Range Comments VLDL Cholesterol (Calc) (test code = 544628) 32 mg/dL <30 Triglyceride (test code = 501572) 159 mg/dL <150 HDL Cholesterol (test code = 561500) 36 mg/dL >=46 Cholesterol (test code = 774501) 211 mg/dL 125-200 LDL Cholesterol (Calc) (test code = 605907) 143 mg/dL <130 Total Chol/HDL Ratio (test code = 191196) 5.9 Ratio <=5.0 [id number] 00:01:00 Test Item Value Reference Range Comments TSH (test code = 665052) 0.51 mIU/L Assessments Condition Name Status Diagnosis Date Treating Clinici an Pain in unspecified joint Active Other specified abnormal findings of blood Active chemistry Hyperlipidemia, unspecified Active Prediabetes Active Pain in right knee Active Pain in left knee Active Unspecified asthma, uncomplicated Active Bipolar disorder, unspecified Active Acute maxillary sinusitis, unspecified Active Acute serous otitis media, bilateral Active Cough Active Body mass index (BMI) 25.0-25.9, adult Active Unspecified kyphosis, thoracic region Active Other specified abnormal findings of blood Active chemistry Hyperlipidemia, unspecified Active Flushing Active Flushing Active Hyperlipidemia, unspecified Active Other fatigue Active Prediabetes Active Unspecified asthma with (acute) exacerbation Active Acute sinusitis, unspecified Active Hyperlipidemia, unspecified Active Prediabetes Active Encntr screen mammogram for malignant Active neoplasm of breast Hyperlipidemia, unspecified Active Other fatigue Active Hyperglycemia, unspecified Active Unspecified asthma, uncomplicated Active Acute maxillary sinusitis, unspecified Active Allergic rhinitis due to pollen Active Other fatigue Active Encounters Start End Encounter Admission Attending Care Care Encounter Date/Time Date/Time Type Type Clinicians Facility Department ID 2020-02-01 2020-02-01 [id number]:15:00 09:15:00 Angel El [id number] s [id number] and [id number] [facility], 2018-09-29 2018-09-[id number] 09:30:00 09:30:00 [facility] [id number] s [id number] and [id number] [facility], [place] 2018-02-02 2018-02-02 [id number] 16:00:00 16:00:00 [facility] [id number] s [id number] and [id number] [facility] [place] 2018-01-06 2018-01-06 [id number] 14:00:00 14:00:00 [facility] [id number] s [id number] and [id number] [facility], [place] 2017-12-30 2017-12-30 [facility] C6 [id number] 09:15:00 09:15:00 [facility] [id number] s [id number] and [id number] [facility], [place] 2017-07-22 2017-07-22 [facility] [id number] 09:00:00 09:00:00 [facility] [id number] s [id number] and [id number] [facility] [place] 2017-06-20 2017-06-20 [facility] C1 [id number] 09:00:00 09:00:00 [facility] [id number] s [id number] and [id number] [facility], [place] 2016-12-02 2016-12-02 [facility] [id number] 09:30:00 09:30:00 [facility] [id number] s [id number] and [id number] [facility], [place] Social History This patient has no known social history. Vital Signs This patient has no known vital signs.
== END 2020-09-18 05:40 | disposition home or self-care (01) ==
LOC: ER 18:35
DX: I10 Essential (primary) hypertension (principal); F41.9 Anxiety disorder, unspecified; R51.9 Headache, unspecified; R07.89 Other chest pain; F32.9 Major depressive disorder, single episode, unspecified; J45.909 Unspecified asthma, uncomplicated; Z79.899 Other long term (current) drug therapy; Z79.52 Long term (current) use of systemic steroids; Z82.49 Family history of ischemic heart disease and other diseases of the circulatory system
CPT/HCPCS: 93005; 99285; 96360; 36415; 82550; 83735; 85025; 80053; 84484; 71046; 93010; A9270 ×2; J7030